=== PATIENT | male | born 1960 | race Caucasian/White ===

== ENCOUNTER 2018-01-03 07:48 | Inpatient (IN) ==
[~2018-01-03 07:48] MED LIST: *HR* EPINEPHrine 1 MG/ML AMPUL ONE; *HR* FentaNYL (PF) 100 MCG/2 ML VIAL ONE; *HR* Midazolam HCl 2 MG/2 ML VIAL ONE; *HR* Propofol 200 MG/20 ML VIAL IVP ONE; *HR* Rocuronium Bromide 50 MG/5 ML VIAL ONE; Dexamethasone 4 MG/ML VIAL ONE; Lidocaine -MPF 2% 2 ML VIAL ONE; NiCARdipine 2.5 MG/10 ML Syringe IVPB ONE; Nitroglycerin 25 MG/250 ML INFUS..BTL IVC ONE; Ondansetron 4 MG/2 ML VIAL ONE
[2018-01-03] MEDS ORDERED: Albuterol 2.5 MG/3 ML NEBULIZER IH ONE (08:05)
[2018-01-03] MEDS ORDERED: CeFAZolin Syr 2,000MG/20 ML 2,000 MG/20 ML SYRINGE IVPB ONE (08:06)
[2018-01-03] MEDS ORDERED: Heparin 1,000 UNITS/500 mL 500 ML ONE (08:08)
[2018-01-03] MEDS ORDERED: Famotidine 20 MG/2 ML VIAL IVP ONE (08:08)
[2018-01-03] MEDS ORDERED: Levalbuterol Neb 1.25 MG/3 ML IH ONE (08:08)
[2018-01-03] MEDS ORDERED: Heparin 1,000 UNITS/500 mL 1,500 ML ONE (08:09)
[2018-01-03] MEDS ORDERED: Acetaminophen IV 1,000 MG/100 ML INFUS..BTL IVPB ONE (08:09)
[2018-01-03] MEDS ORDERED: Lidocaine -MPF 2% 2 ML VIAL ONE (08:10)
--- NOTE | 2018-01-03 08:12 | Anesthesia Evaluation PreOp ---
Date of Encounter: 01/03/18 Time of Encounter: 08:10 - Past History Planned Operation: Left Fem-Pop Bypass Cardiac History: HTN, Hyperlipidemia, Other (PVD) Pulmonary History: Smoker, COPD SLACKMAN History: Denies Any Significant HX Other Medical History: Other (Anxiety) Anesthesia History: No Prior Anesthetic Complications Alcohol Use: occasionally Drug use: none Medications and Allergies Acetaminophen [Tylenol] 500 mg PO Q6HR PRN 12/12/17 [History] Albuterol Sulfate [Ventolin Hfa] 2 puff IH Q6H PRN 12/12/17 [History] Aspirin [Lo-Dose Aspirin EC] 81 mg PO DAILY 12/12/17 [History] Sertraline [Zoloft] 50 mg PO DAILY 12/12/17 [History] Umeclidinium [place] [Incruse Ellipta] 62.5 mcg IH DAILY 12/12/17 [History] diphenhydrAMINE HCl [Sleep Aid] 25 mg PO HS 12/12/17 [History] 3 Allergy/AdvReac Type Severity Reaction Status Date / Time No Known Allergies Allergy Verified 12/08/17 11:54 - Meds/Allergy Pre-op Review Medications Reviewed: Yes Allergies Reviewed: Yes Beta Blockers on Current Med List: No Anesthesia Results - Labs Laboratory Tests 01/01/18 01/01/18 01/01/18 13:28 13:28 13:28 Hgb 15.7 Hct 44.9 Plt Count 327 PT 11.1 INR 1.0 APTT 28.5 Sodium 137 Potassium 3.7 BUN 13 Creatinine 0.63 L - Imaging EKG: report reviewed (SR short [place]) Additional studies: Stress Test Negative for Ischemia, EF 44% Anesthesia Exam O2 Sat Height 1.7 m Height 1.7 m Weight 58.06 kg Weight 58.06 kg O2 Sat by Pulse Oximetry 96 Vital Signs Temp Pulse Resp BP Pulse Ox 98.3 F 125 18 141/82 96 01/03/18 08:05 01/03/18 08:05 01/03/18 08:05 01/03/18 08:05 01/03/18 08:05 Height: 5'7 Weight: 128 lbs NPO (# of Hours): MN Pain Scale: 0 - HEENT Pupil (Motor): Pupils equal, EOMI Mallampati: II Teeth: Missing, Poor dentition Oral Opening: Greater than 3 - SLACKMAN LOC: Oriented SLACKMAN Motor: Normal RUE, Normal LUE, Normal RLE, Normal LLE, Normal Face SLACKMAN Sensory: Normal: RUE, LUE, RLE, Face, Deficit: LLE (paresthesia, ulceration ) - Cardiac Rhythm: Regular Murmur: None JVD: No Carotid Bruit: No - Pulmonary Breath Sounds: bilateral Clear Respiratory Effort: Symmetrical Anesthesia Assess/Plan ASA Score: 3 (HTN PVD) Modified [place] Scale for Level of Consciousness: Cooperative, oriented, and tranquil Anesthetic Plan: General Monitoring Plan: Standard Monitors, A-Line Recovery Plan: PACU (Discussed GA, agrees to proceed)
[2018-01-03] MEDS ORDERED: Ringers Solution, Lactated 1,000 ML IVC SCH (08:15)
[2018-01-03] MEDS ORDERED: Vancomycin 1,000 MG, Sodium Chloride IRRigation 1,000 ML IR ONE (08:15)
--- NOTE | 2018-01-03 08:29 | History & Physical Report ---
Date of Encounter: 01/03/18 Time of Encounter: 08:00 24 Hour HP Update - Instructions Instructions: If the History and Physical is less than 30 days old and was completed prior to A.M. admission and or procedure and has NOT been updated on calendar day of procedure please complete this update prior to performing procedure. - Update Patient reports changes in Medical Condition: No Changes in examination, assessment, or condition: No Changes in Medication: No Preop tests/diagnostics Reviewed: Yes Surgery Remains Indicated: Yes Consent for Planned Operative Procedure(s) Verified: Yes - Pre-Operative Checklist Preoperative Checklist Indicated: Yes Prophylactic Antibiotic Ordered: Yes (vancomycin due to MRSA risk) Home Medications Include Beta Ann: No Beta Ann Taken Today (Day of Surgery): No Beta Ann Taken Yesterday (Day Prior to Surgery): No Is VTE Prophylaxis Indicated?: Yes
[2018-01-03] MEDS ORDERED: Esmolol 100 MG/10 ML VIAL IVP ONE (09:07)
--- NOTE | 2018-01-03 09:21 | Anesthesia Procedures ---
Date of Encounter: 01/03/18 Time of Encounter: 08:10 Procedures: Anesthesia - Arterial Line Consent obtained: written consent Time out performed: Yes Sedation: Versed (mg): 2 Sedation: Fentanyl (mcg): 100 Supplemental Oxygen via Nasal Cannula (L/min): 2 Size (Gauge): 20 Length (inches): 1 3/4 Technique Used: sterile prep, guide wire technique, direct puncture technique Post-Procedure: line taped into place Patient tolerated procedure: no complications Complications: none Site: Radial L Vitals: Vital Signs/O2 Sat/Glucose, Most Current Temp Pulse Resp BP Pulse Ox 01/03/18 08:15 18 141/82 96 01/03/18 08:05 98.3 F 125 18 141/82 96
[2018-01-03] MEDS ORDERED: *HR* Metoprolol 5 MG/5 ML VIAL IVP ONE (09:23)
[2018-01-03] MEDS ORDERED: *HR* HYDROcodone/Acet 10/325 mg TABLET PO PRN (09:25)
[2018-01-03] MEDS ORDERED: *HR* Labetalol 20 MG/4 ML SYRINGE IVP PRN ×2 (09:25→13:09)
[2018-01-03] MEDS ORDERED: *HR* Promethazine 25 MG/ML VIAL IVP PRN ×2 (09:25→13:09)
[2018-01-03] MEDS ORDERED: *HR* Labetalol 100 MG/20 ML MDV IVP PRN (09:45)
[2018-01-03] MEDS ORDERED: *HR* FentaNYL (PF) 100 MCG/2 ML VIAL ONE (09:55)
[2018-01-03] MEDS ORDERED: *HR* PHENYLEPHRINE 1,000 MCG/10 ML SYRINGE IVP ONE ×2 (10:12→11:34)
[2018-01-03] MEDS ORDERED: Neostigmine Methylsulfate 3 MG/3 ML SYRINGE ONE (10:27)
[2018-01-03] MEDS ORDERED: *HR* Labetalol 100 MG/20 ML MDV ONE (11:04)
[2018-01-03] MEDS ORDERED: *HR* Morphine 2 MG/ML SYRINGE IVP PRN (11:56)
--- NOTE | 2018-01-03 12:26 | Operative Note ---
Date of procedure: 01/03/18 Pre-op diagnosis: Peripheral vascular disease with ulceration/gangrene Post-op diagnosis: same Procedure: 1. Left common and deep femoral endarterectomy. 2. Left popliteal endarterectomy. 3. Left femoral to popliteal artery bypass with 6mm PTFE Disatflo minicuff graft. Complications: None Anesthesia: ANNI Surgeon: Danny Lombardi Was there an advertising sales assistant present: No Estimated blood loss (cc): 50 Specimen: Left lower extremity plaque Condition: stable Disposition: same day Procedure in Detail: Indications: The patient is a 57 year old male with a history of chronic obstructive pulmonary disease, hyperlipidemia, tobacco abuse and peripheral vascular disease with disabling claudication, left toe ulcers and left toe gangrene. He was found to have severe left lower extremity peripheral vascular disease. Surgery was recommended to reduce his symptoms. Procedure: The patient was identified in the preoperative area. The risks, benefits, and alternatives of the procedure were discussed. All questions were answered. The patient was taken to the operating room and placed in supine position on the operating room table. After the induction of general endotracheal anesthesia, he was cleaned and draped in normal sterile fashion. An oblique incision was made over the left groin sharply. Hemostasis was obtained with electrocautery. Through a process of blunt, sharp, and electrocautery dissection, the left femoral vessels were dissected circumferentially and surrounded with vessel loops. An incision was made on the left medial distal thigh sharply. Hemostasis was obtained with electrocautery. Through a process of blunt, sharp, and electrocautery dissection, the left above-knee popliteal artery was dissected proximally and distally and surrounded with vessel loops. A graft was tunneled between the popliteal and femoral incisions. The patient received 5000 units of heparin intravenously. Additional heparin was given throughout the case to maintain adequate anticoagulation. The popliteal vessels were occluded and a longitudinal arteriotomy was made in the popliteal artery. A stenotic, flow-limiting plaque was identified in the above knee popliteal artery. Using a dental freer, a left popliteal artery endarterectomy was performed. Upon removal of the plaque, no elevated flaps were noted. Release of the vessel loops revealed retrograde flow through the popliteal artery. The loops were then applied to tension. The distal end of the graft was sutured in place with a running 6-0 Prolene, but not tied. Heparinized saline was infused into the lumen. Tension was applied to the femoral vessel loops. An arteriotomy was made in the common femoral artery and the graft was cut to fit the defect. It was noted that nearly occlusive plaque extended from the common femoral artery through the deep femoral artery. The superficial femoral artery was chronically occluded. Using a dental freer, a left common and deep femoral artery endarterectomy was performed. Upon removal of the plaque, no elevated flaps were noted. Release of the vessel loops revealed pulsatile antegrade flow and significant retrograde flow through the deep femoral artery. The loops were then applied to tension. The graft was then anastamosed to the arteriotomy with a running 6-0 Prolene. The vessels were flushed through the graft and heparin was infused into the lumen. The graft was clamped with an atraumatic clamp. Thrombin and gelfoam were used at the proximal anastamosis. The distal arterial anastomosis was completed and prior to completing the closure, the popliteal vessels were flushed and reoccluded. Heparinized saline was infused into the lumen. The anastamosis was tied and then flow was restored. Polyphasic signals were noted distal to the distal anastomosis as well as at the posterior tibial artery. Wounds were irrigated with antibiotic-containing saline. Thrombin and gelfoam were used to aid in hemostasis. Platelet rich and platelet poor plasma were infused into the wounds. Meticulous hemostasis was obtained throughout the wound with electrocautery. Wounds were reapproximated with layers of 2-0 and 3-0 Vicryl. Skin was reapproximated with 3-0 Monocryl. Sterile dressing was applied. The patient was extubated and taken to recovery room in stable condition.
--- NOTE | 2018-01-03 12:57 | Anesthesia Evaluation Post Op ---
Date of Encounter: 01/03/18 Time of Encounter: 12:50 - Vital Signs Vital Signs: Vital Signs/O2 Sat/Glucose, Most Current Temp Pulse Resp BP Pulse Ox 01/03/18 12:45 98.8 F 85 16 146/86 95 01/03/18 12:35 80 14 154/89 94 01/03/18 12:25 80 16 153/89 97 01/03/18 12:15 97.5 F L 89 18 157/90 100 - Lungs Lungs: Clear Ascult./Percussion - Airway Airway: Non-obstructed - Cardiovascular Regular Rate - Mental Status Mental Status: Alert & Oriented, Answers Appropriately - Pain Pain Scale: 0 - Nausea Vomiting Nausea Vomiting: Not Present - Hydration Hydration: Ice chips - Discharge PostOp Status: Transfer Patient to floor
[2018-01-03] MEDS ORDERED: Naloxone 0.4 MG/ML INJ IVP PRN (13:09)
[2018-01-03] MEDS ORDERED: Acetaminophen 325 MG TABLET PO PRN (13:09)
[2018-01-03] MEDS ORDERED: *HR* OxyCODONE Immed Rel 5 MG TABLET PO PRN (13:09)
[2018-01-03] MEDS ORDERED: Ondansetron 4 MG/2 ML VIAL IVP PRN (13:09)
[2018-01-03] MEDS ORDERED: OXYCODONE Oral CONC 10 MG/0.5 ML ORAL.SYG SL PRN (13:09)
[2018-01-03] MEDS: *HR* Metoprolol 5 MG/5 ML VIAL IVP SCH ×3 (13:46→23:51)
[2018-01-03] MEDS: Aspirin Enteric Coated 81 MG Tablet PO SCH (13:47)
[2018-01-03] MEDS: *HR* HYDROcodone/Acet 5/325 mg TABLET PO PRN (15:01)
[2018-01-03] MEDS: ceFAZolin 2,000 MG in 0.9 % Sodium Chloride 100 ML IVPB SCH ×2 (16:16→23:47)
[2018-01-03] MEDS: OXYCODONE Oral CONC 10 MG/0.5 ML ORAL.SYG SL PRN (17:51)
[2018-01-03] MEDS ORDERED: Vancomycin 0 MG in D5% in Water 250 ML IVPB ONE (19:30)
[2018-01-04] MEDS: OXYCODONE Oral CONC 10 MG/0.5 ML ORAL.SYG SL PRN ×3 (00:18→10:04)
[2018-01-04 03:55] LABS: Basophils # 0.1 K/mcL (0.0-0.2); Basophils % 0.4 %; Eosinophils # 0.1 K/mcL (0.0-0.6); Eosinophils % 0.4 %; Hematocrit 38.1 % (37.5-50.1); Immature Granulocytes % 0.4 % (0-4); Lymphocytes # 3.5 K/mcL (0.6-4.6); Lymphocytes % 18.4 %; Mean Corpuscular HGB Conc 34.6 g/dL (31.6-35.5); Mean Corpuscular Hemoglobin 31.8 pg (28.0-33.3); Mean Corpuscular Volume 91.8 fL (83.0-100.0); Mean Platelet Volume 10.3 fL (9.4-12.4); Monocytes # 1.7 K/mcL (0.0-1.3); Neutrophils # 13.7 K/mcL (1.6-8.9); Platelet Count 237 K/mcL (140-400); Red Blood Count 4.15 M/mcL (4.19-5.50); Red Cell Distribution Width 13.5 % (11.5-14.5); Segmented Neutrophils % 71.4 %
[2018-01-04 03:58] LABS: Hemoglobin 13.2 g/dL (12.9-16.9)
[2018-01-04 04:14] LABS: BUN/Creatinine Ratio 13 (6-26); Blood Urea Nitrogen 7 mg/dL (6-20); Carbon Dioxide 25 mEq/L (23-29); Chloride 105 mEq/L (98-107); Glucose 101 mg/dL (70-105); Osmolality,Calculated 280 (280-300); Potassium 3.8 mEq/L (3.5-5.1); Sodium 136 mEq/L (136-145); eGFR For African Americans > 60 (> 60); eGFR For Non-African Americans > 60 (> 60)
[2018-01-04] MEDS ORDERED: *HR* Heparin 5,000 UNIT/ML VIAL SQ SCH ×2 (06:00)
[2018-01-04] MEDS: *HR* Metoprolol 5 MG/5 ML VIAL IVP SCH (06:19)
--- NOTE | 2018-01-04 07:06 | Discharge Summary ---
Orders not resulted at time of discharge: Pending orders 01/02/18 09:28 Red Blood Cells [BBK] Routine 01/03/18 12:04 Surgical Pathology [PTH] Routine Date of Encounter: 01/04/18 Time of Encounter: 07:50 - Discharge Diagnosis (1) Atherosclerosis of left lower extremity with gangrene Priority: Primary Status: Acute Comments: The patient is postoperative day #1 after a left femoral to popliteal bypass and left femoral endarterectomy. He tolerated the procedure well. His foot is warm. He will be discharged today. Qualifiers: Peripheral atherosclerosis artery type: bypass graft, nonbiological Qualified Code(s): I70.662 - Atherosclerosis of nonbiological bypass graft(s) of the extremities with gangrene, left leg (2) COPD (chronic obstructive pulmonary disease) Priority: Secondary Status: Chronic Qualifiers: COPD type: emphysema Emphysema type: panlobular Qualified Code(s): J43.1 - Panlobular emphysema (3) Essential hypertension Priority: Secondary Status: Chronic (4) Tobacco abuse Priority: Secondary Status: Chronic - Hospital Course Hospital course: Mr. Correa is a 57 year old male with a history of hypertension, COPD, tobacco abuse and peripheral vascular disease with gangrene. He was admitted on and underwent a left femoral endarterectomy and left femoral to popliteal artery bypass. He tolerated the procedure well and was discharged in stable condition on postoperative day #1. Time spent discussing smoking cessation with patient: 3 to 10 minutes - Time Spent with Patient Total time spent providing and/or coordinating discharge services: - Discharge Medications Home Medications: Albuterol Sulfate [Ventolin Hfa] 2 puff IH Q6H PRN 12/12/17 [History] Aspirin [Lo-Dose Aspirin EC] 81 mg PO DAILY 12/12/17 [History] Sertraline [Zoloft] 50 mg PO DAILY 12/12/17 [History] Umeclidinium [place] [Incruse Ellipta] 62.5 mcg IH DAILY 12/12/17 [History] diphenhydrAMINE HCl [Sleep Aid] 25 mg PO HS 12/12/17 [History] Ibuprofen [Motrin] 400 mg PO Q6HR PRN 01/10/18 [History] OxyCODONE/APAP 5/325 [Percocet 5/325 MG] 1 each PO Q6HR PRN 5 Days #20 tablet [Rx] Rivaroxaban [Xarelto] 20 mg PO DAILY #30 tablet 01/10/18 [Rx] Allergies/Adverse Reactions: 3 Allergy/AdvReac Type Severity Reaction Status Date / Time No Known Allergies Allergy Verified 12/08/17 11:54 Date of admission: 01/03/18 13:02 Primary care physician: Elvis Arreaga MD Procedure(s) Performed: Let femoral endarterectomy, left femoral to popliteal bypass. Discharging clinician: Danny Lombardi Anticipated date of discharge: 01/04/18 Exam Vital Signs, Last 4 Hours Temp Pulse Resp BP Pulse Ox 01/04/18 06:40 97.9 F 64 16 113/70 96 01/04/18 04:08 98.1 F 71 16 123/75 96 General: Present: Conversant, No Apparent Distress Cardiac: Present: Reg Rate and Rhythm Lungs: Present: Normal Breath Sounds Neuro: Present: Alert and responsive, No focal deficits noted Abdomen: Present: Soft, Non-tender Vascular: Present: Normal capillary refill, Surgical incisions (incisions clean and dry without erythema or drainage), Other (pedal signals present bilaterally) . Absent: Cyanosis, Edema Skin: Present: No rashes noted on visualized skin - Patient Status Disposition: Home, Self-Care Condition: Good Functional capacity at discharge: independent ambulation Overall status at discharge: patient is back to baseline - Discharge Instructions Instructions: Femoropopliteal Bypass (DC) Follow Up With: Danny Lombardi MD [Partnered Physician] - 02/13/18 1:00 pm Elvis Arreaga MD [Primary Care Provider] - 01/10/18 8:30 am Additional Instructions: May remove bandage and shower on 01/05/18. Wash wound gently and pat to dry. Apply dry bandage to wound daily for 7 days. No tub baths or swimming until 01/26/18. Call Dr. Lombardi at [phone] with questions or concerns. - Diet and Activity Activity: increase activity as tolerated Diet: advance to your usual diet - VTE Documentation of Mechanical Device: Intermittent pneumatic compression device
[2018-01-04] MEDS: Aspirin Enteric Coated 81 MG Tablet PO SCH (08:02)
[2018-01-04] MEDS: *HR* HYDROcodone/Acet 5/325 mg TABLET PO PRN (08:02)
[2018-01-04 10:39] VITALS: BP 126/69
== END 2018-01-04 12:15 | disposition home or self-care (01) | DRG 181 ==
LOC: SAMDAY 07:48 → 2NNU 13:02
PROVIDERS: ADMIT Surgery; ATTEND Surgery

== ENCOUNTER 2018-01-10 10:12 | Inpatient (IN) ==
[2018-01-10] MEDS ORDERED: *HR* HYDROcodone/Acet 5/325 mg TABLET PO ONE (10:42)
--- NOTE | 2018-01-10 11:27 | Emergency Department Note ---
Disposition Clinical Impression: S/P femoral-popliteal bypass surgery, Diminished pulses in lower extremity Disposition: Admitted As Inpatient Condition: Good Time of Disposition: 12:59 General Adult HPI - General Chief complaint: ED Extremity Problem,Nontraumatic Stated complaint: Left toe gangrene Time Seen by Provider: 01/10/18 10:28 Source: patient Limitations: no limitations Nursing Notes Reviewed: Yes Vital Signs Reviewed: Yes - History of Present Illness HPI Narrative: Mr. Correa is a very pleasant 57-year-old gentleman with a past history of PAD, hypertension, depression and tobacco abuse who presents to the [facility] emergency department with a chief complaint of left lower extremity shooting pain in his toes. He reports that this complaint and present for several months but has really intensified over the last several days. He is a current everyday smoker of 1-1.5 packs per day. He reports that he underwent a left femoropopliteal bypass with left popliteal and left deep femoral and endarectomy by Dr. Lombardi on 01/03/18. He reports that he is taking ASA only for his coagulation. Patient has a history of necrotic toes prior to this procedure that he states is unchanged. He goes on to state that he is experiencing changes in tempurature from hot to cold in his left lower extremity. He denies any pain about his left calf or thigh. He denies any drainage or erythema about his surgical incisions. He denies any chest pain, shortness of breath, palpitations, nausea, vomiting, diaphoresis. No other complaints at this time. Pain Scale: 10 - Related Data Home Medications Medication Instructions Recorded Confirmed Albuterol Sulfate [Ventolin Hfa] 2 puff IH Q6H PRN 12/12/17 01/10/18 Aspirin [Lo-Dose Aspirin EC] 81 mg PO DAILY 12/12/17 01/10/18 Sertraline [Zoloft] 50 mg PO DAILY 12/12/17 01/10/18 Umeclidinium [place] [Incruse 62.5 mcg IH DAILY 12/12/17 01/10/18 Ellipta] diphenhydrAMINE HCl [Sleep Aid] 25 mg PO HS 12/12/17 01/10/18 Ibuprofen [Motrin] 400 mg PO Q6HR PRN 01/10/18 01/10/18 Allergies Allergy/AdvReac Type Severity Reaction Status Date / Time No Known Allergies Allergy Verified 12/08/17 11:54 Review of Systems: As Per HPI Past Medical History - Past Medical History Medical history: Reports: asthma, COPD, hyperlipidemia, hypertension, TIA Psychiatric history: Reports: anxiety, depression - Social History Smoking Status: Current every day smoker Smokeless Tobacco Status: No Alcohol use: Reports: occasionally Drug use: Reports: none Physical Exam CONSTITUTIONAL: Alert and oriented X3 in no apparent distress HEAD: Normocephalic; atraumatic. RESP: NRD without use of accessory musculature, CTA b/l with no wheezes/rales/ rhonchi CARD: Regular rhythm, without murmurs, rubs, or gallop ABD: grossly normal, soft, non-tender, no guarding/distention/rigidity SKIN: Black eschar about second, third, fourth toes on the left foot. Left inguinal and left medial thigh incision are clean dry intact. This appears to be well-healed at this time. There is no drainage, erythema or signs of dehiscence. EXT: PT pulses 1+ and symmetrical; no lateralizing edema PSYCH: appropriate mood/affect - General Limitations: no limitations General appearance: alert Course Course Narrative: Patient was seen and examined at bedside. Vital signs were reviewed and showed tachycardia 120s. Patient is afebrile. Physical examination demonstrates chronic black eschar about the left second, third, fourth toes. The left lower extremities feels warm to touch with faint posterior tibial pulses. Muscle strength in upper extremities 5 out of 5. The DPN, SPN, PT, sural, saphenous are intact. Recent surgical incisions above the left medial thigh and left inguinal area appear to be well-healed at this time. There is no evidence of dehiscence, erythema, drainage. She denies any pain about his left calf or thigh. In the setting of tobacco abuse, PAD and recent vascular surgery along with worsening peripheral neuropathy symptoms, will begin workup with ABIs to further evaluate the patency of this graft with basic labwork and coags. This disposition and plan was discussed with patient and family who understand and agree to this plan. 1215: SUNDEEP rt 0.56 and lt 0.00. Doppler ultrasound demonstrated monophasic waveform on PT and DP on the left foot. Dr. Lombardi was paged and called back at 1220 and will see this patient in the emergency department prior to disposition. No further recommendations at this time. 1256: Dr. Lombardi called back and recommended 5,000 unit heparin bolus and type and cross. Patient will be taken directly to the OR for intervention and admitted via vascular surgery team. Patient understands this plan. Vital Signs Temperature 97.9 F 01/10/18 10:15 Pulse Rate 124 01/10/18 10:15 Respiratory Rate 14 01/10/18 10:15 Blood Pressure 154/95 01/10/18 10:15 O2 Sat by Pulse Oximetry 94 01/10/18 10:15 Temperature 97.9 F 01/10/18 10:15 Pulse Rate 113 01/10/18 13:08 Respiratory Rate 16 01/10/18 13:08 Blood Pressure 153/93 01/10/18 13:08 O2 Sat by Pulse Oximetry 94 01/10/18 13:08 Oxygen Delivery Oxygen Delivery Room Air Medical Decision Making - Medical Records Medical records reviewed: Yes I reviewed the patient's medical records. - Lab Data Lab results reviewed: Yes I reviewed the patient's lab results. Result diagrams: 01/10/18 11:32 01/10/18 11:11 Lab Results 01/10/18 01/10/18 01/10/18 Range/Units 11:11 11:11 11:32 WBC 15.9 H (4.3-11.1) K/mcL RBC 4.61 (4.19-5.50) M/mcL Hgb 15.1 D (12.9-16.9) g/dL Hct 42.6 (37.5-50.1) % MCV 92.4 (83.0-100.0) fL MCH 32.8 (28.0-33.3) pg MCHC 35.4 (31.6-35.5) g/dL RDW 13.1 (11.5-14.5) % Plt Count 397 D (140-400) K/mcL MPV 10.0 (9.4-12.4) fL Immature Gran % 0.4 (0-4) % Seg Neutrophils % 75.2 % Lymphocytes % 14.9 % Monocytes % 8.6 % Eosinophils % 0.6 % Basophils % 0.3 % Neutrophils # 11.9 H (1.6-8.9) K/mcL Lymphocytes # 2.4 (0.6-4.6) K/mcL Monocytes # 1.4 H (0.0-1.3) K/mcL Eosinophils # 0.1 (0.0-0.6) K/mcL Basophils # 0.0 (0.0-0.2) K/mcL PT (9.4-12.1) Seconds INR Sodium 134 L (136-145) mEq/L Potassium 3.7 (3.5-5.1) mEq/L Chloride 99 (98-107) mEq/L Carbon Dioxide 24 (23-29) mEq/L BUN 6 (6-20) mg/dL Creatinine 0.55 L (0.70-1.30) mg/dL Est GFR ( Amer) > 60 (> 60) Est GFR (Non-Af Amer) > 60 (> 60) BUN/Creatinine Ratio 11 (6-26) Glucose 114 H (70-105) mg/dL Calculated Osmolality 276 L (280-300) Calcium 9.8 (8.6-10.3) mg/dL Specimen Rejected Volume Blood Type Antibody Screen 01/10/18 01/10/18 01/10/18 Range/Units 11:56 12:50 13:05 WBC (4.3-11.1) K/mcL RBC (4.19-5.50) M/mcL Hgb (12.9-16.9) g/dL Hct (37.5-50.1) % MCV (83.0-100.0) fL MCH (28.0-33.3) pg MCHC (31.6-35.5) g/dL RDW (11.5-14.5) % Plt Count (140-400) K/mcL MPV (9.4-12.4) fL Immature Gran % (0-4) % Seg Neutrophils % % Lymphocytes % % Monocytes % % Eosinophils % % Basophils % % Neutrophils # (1.6-8.9) K/mcL Lymphocytes # (0.6-4.6) K/mcL Monocytes # (0.0-1.3) K/mcL Eosinophils # (0.0-0.6) K/mcL Basophils # (0.0-0.2) K/mcL PT 12.3 H (9.4-12.1) Seconds INR 1.1 Sodium (136-145) mEq/L Potassium (3.5-5.1) mEq/L Chloride (98-107) mEq/L Carbon Dioxide (23-29) mEq/L BUN (6-20) mg/dL Creatinine (0.70-1.30) mg/dL Est GFR ( Amer) (> 60) Est GFR (Non-Af Amer) (> 60) BUN/Creatinine Ratio (6-26) Glucose (70-105) mg/dL Calculated Osmolality (280-300) Calcium (8.6-10.3) mg/dL Specimen Rejected Hemolyzed Blood Type B POSITIVE Antibody Screen NEGATIVE - Radiology Data Radiology results reviewed: Yes I reviewed the patient's radiology results.
[2018-01-10 11:40] LABS: Basophils % 0.3 %; Eosinophils # 0.1 K/mcL (0.0-0.6); Eosinophils % 0.6 %; Hematocrit 42.6 % (37.5-50.1); Immature Granulocytes % 0.4 % (0-4); Lymphocytes # 2.4 K/mcL (0.6-4.6); Lymphocytes % 14.9 %; Mean Corpuscular HGB Conc 35.4 g/dL (31.6-35.5); Mean Corpuscular Hemoglobin 32.8 pg (28.0-33.3); Mean Corpuscular Volume 92.4 fL (83.0-100.0); Monocytes # 1.4 K/mcL (0.0-1.3); Monocytes % 8.6 %; Neutrophils # 11.9 K/mcL (1.6-8.9); Platelet Count 397 K/mcL (140-400); Red Blood Count 4.61 M/mcL (4.19-5.50); Red Cell Distribution Width 13.1 % (11.5-14.5); Segmented Neutrophils % 75.2 %
[2018-01-10 11:44] LABS: Hemoglobin 15.1 g/dL (12.9-16.9)
[2018-01-10 12:11] LABS: BUN/Creatinine Ratio 11 (6-26); Blood Urea Nitrogen 6 mg/dL (6-20); Calcium 9.8 mg/dL (8.6-10.3); Carbon Dioxide 24 mEq/L (23-29); Chloride 99 mEq/L (98-107); Glucose 114 mg/dL (70-105); Osmolality,Calculated 276 (280-300); Potassium 3.7 mEq/L (3.5-5.1); Sodium 134 mEq/L (136-145); eGFR For African Americans > 60 (> 60); eGFR For Non-African Americans > 60 (> 60)
[2018-01-10] MEDS ORDERED: *HR* Heparin 5,000 UNIT/ML VIAL IVP ONE (12:54)
--- NOTE | 2018-01-10 12:59 | Emergency Department Note ---
Disposition Clinical Impression: S/P femoral-popliteal bypass surgery, Diminished pulses in lower extremity Disposition: Admitted As Inpatient Condition: Good Extremity Problem HPI - General Chief complaint: ED Extremity Problem,Nontraumatic Stated complaint: Left toe gangrene Time Seen by Provider: 01/10/18 10:28 Source: patient Limitations: no limitations Nursing Notes Reviewed: Yes Vital Signs Reviewed: Yes - History of Present Illness Pain Scale: 10 - Related Data Home Medications Medication Instructions Recorded Confirmed Albuterol Sulfate [Ventolin Hfa] 2 puff IH Q6H PRN 12/12/17 01/10/18 Aspirin [Lo-Dose Aspirin EC] 81 mg PO DAILY 12/12/17 01/10/18 Sertraline [Zoloft] 50 mg PO DAILY 12/12/17 01/10/18 Umeclidinium [place] [Incruse 62.5 mcg IH DAILY 12/12/17 01/10/18 Ellipta] diphenhydrAMINE HCl [Sleep Aid] 25 mg PO HS 12/12/17 01/10/18 Ibuprofen [Motrin] 400 mg PO Q6HR PRN 01/10/18 01/10/18 Previous Rx's Medication Instructions Recorded OxyCODONE/APAP 5/325 [Percocet 1 each PO Q6HR PRN 5 Days #20 01/10/18 5/325 MG] tablet Rivaroxaban [Xarelto] 20 mg PO DAILY #30 tablet 01/10/18 Allergies Allergy/AdvReac Type Severity Reaction Status Date / Time No Known Allergies Allergy Verified 12/08/17 11:54 Past Medical History - Past Medical History Medical history: Reports: asthma, COPD, hyperlipidemia, hypertension, TIA Psychiatric history: Reports: anxiety, depression - Social History Smoking Status: Current every day smoker Smokeless Tobacco Status: No Alcohol use: Reports: occasionally Drug use: Reports: none Physical Exam - General Limitations: no limitations General appearance: alert Course Vital Signs Temperature 97.9 F 01/10/18 10:15 Pulse Rate 124 01/10/18 10:15 Respiratory Rate 14 01/10/18 10:15 Blood Pressure 154/95 01/10/18 10:15 O2 Sat by Pulse Oximetry 94 01/10/18 10:15 Temperature 98.5 F 01/11/18 11:20 Pulse Rate 89 01/11/18 11:20 Respiratory Rate 16 01/11/18 11:20 Blood Pressure 144/85 01/11/18 11:20 O2 Sat by Pulse Oximetry 98 01/11/18 11:20 Oxygen Delivery Oxygen Delivery Room Air Extremity Problem, Nontraumati - Lab Data Result diagrams: 01/11/18 04:20 01/11/18 04:20 Lab Results 01/10/18 01/10/18 01/10/18 Range/Units 11:11 11:11 11:32 WBC 15.9 H (4.3-11.1) K/mcL RBC 4.61 (4.19-5.50) M/mcL Hgb 15.1 D (12.9-16.9) g/dL Hct 42.6 (37.5-50.1) % MCV 92.4 (83.0-100.0) fL MCH 32.8 (28.0-33.3) pg MCHC 35.4 (31.6-35.5) g/dL RDW 13.1 (11.5-14.5) % Plt Count 397 D (140-400) K/mcL MPV 10.0 (9.4-12.4) fL Immature Gran % 0.4 (0-4) % Seg Neutrophils % 75.2 % Lymphocytes % 14.9 % Monocytes % 8.6 % Eosinophils % 0.6 % Basophils % 0.3 % Neutrophils # 11.9 H (1.6-8.9) K/mcL Lymphocytes # 2.4 (0.6-4.6) K/mcL Monocytes # 1.4 H (0.0-1.3) K/mcL Eosinophils # 0.1 (0.0-0.6) K/mcL Basophils # 0.0 (0.0-0.2) K/mcL PT (9.4-12.1) Seconds INR Sodium 134 L (136-145) mEq/L Potassium 3.7 (3.5-5.1) mEq/L Chloride 99 (98-107) mEq/L Carbon Dioxide 24 (23-29) mEq/L BUN 6 (6-20) mg/dL Creatinine 0.55 L (0.70-1.30) mg/dL Est GFR ( Amer) > 60 (> 60) Est GFR (Non-Af Amer) > 60 (> 60) BUN/Creatinine Ratio 11 (6-26) Glucose 114 H (70-105) mg/dL Calculated Osmolality 276 L (280-300) Calcium 9.8 (8.6-10.3) mg/dL Specimen Rejected Volume Blood Type Antibody Screen 01/10/18 01/10/18 01/10/18 Range/Units 11:56 12:50 13:05 WBC (4.3-11.1) K/mcL RBC (4.19-5.50) M/mcL Hgb (12.9-16.9) g/dL Hct (37.5-50.1) % MCV (83.0-100.0) fL MCH (28.0-33.3) pg MCHC (31.6-35.5) g/dL RDW (11.5-14.5) % Plt Count (140-400) K/mcL MPV (9.4-12.4) fL Immature Gran % (0-4) % Seg Neutrophils % % Lymphocytes % % Monocytes % % Eosinophils % % Basophils % % Neutrophils # (1.6-8.9) K/mcL Lymphocytes # (0.6-4.6) K/mcL Monocytes # (0.0-1.3) K/mcL Eosinophils # (0.0-0.6) K/mcL Basophils # (0.0-0.2) K/mcL PT 12.3 H (9.4-12.1) Seconds INR 1.1 Sodium (136-145) mEq/L Potassium (3.5-5.1) mEq/L Chloride (98-107) mEq/L Carbon Dioxide (23-29) mEq/L BUN (6-20) mg/dL Creatinine (0.70-1.30) mg/dL Est GFR ( Amer) (> 60) Est GFR (Non-Af Amer) (> 60) BUN/Creatinine Ratio (6-26) Glucose (70-105) mg/dL Calculated Osmolality (280-300) Calcium (8.6-10.3) mg/dL Specimen Rejected Hemolyzed Blood Type B POSITIVE Antibody Screen NEGATIVE Attestation Statement - Attestation Attestation: I, Elvis Santos, examined this patient and my medical decision-making was reviewed with the UNIX DEVELOPER/PA/Advanced Practice Nurse/Resident Physician. I agree with the documented findings, disposition and treatment plan as described except to the extent set forth below. 57-year-old male presents emergency department for concerns of left lower extremity pain. Patient is a severe vasculopath and recently had femoropopliteal bypass by Dr. Lombardi within the past few weeks. Patient states there was a pulse to the left lower extremity after surgery. Patient states he has been using aspirin at home but no other blood thinners. Patient states over the past few days his symptoms have significantly worsened. On evaluation emergency Department he has a left leg that is cooler to touch than his right, dusky in appearance. Bedside Doppler shows a weak monophasic pulse to the lower extremity. Cap refill is greater than 5 seconds in the left lower extremity. SUNDEEP is 0.6 on the right and [address] Lombardi was counseled regarding this patient's case and presentation. He agreed with the plan for admission to the operating room for further care and evaluation. Dr. Lombardi is currently in the operating room with another patient, he will evaluate Mr. Correa after the case is finished.
[2018-01-10 13:13] LABS: INR 1.1; Prothrombin Time 12.3 Seconds (9.4-12.1)
[2018-01-10] MEDS ORDERED: Heparin 1,000 UNITS/500 mL 1,000 ML ONE (13:35)
[2018-01-10] MEDS ORDERED: Vancomycin 1,000 MG VIAL ONE ×2 (13:35→14:22)
[2018-01-10] MEDS ORDERED: *HR* FentaNYL (PF) 100 MCG/2 ML VIAL ONE ×3 (13:41→16:15)
[2018-01-10] MEDS ORDERED: Ondansetron 4 MG/2 ML VIAL ONE (13:41)
[2018-01-10] MEDS ORDERED: Lidocaine -MPF 2% 2 ML VIAL ONE (13:41)
[2018-01-10] MEDS ORDERED: *HR* Propofol 200 MG/20 ML VIAL IVP ONE (13:41)
[2018-01-10] MEDS ORDERED: Dexamethasone 4 MG/ML VIAL ONE (13:41)
[2018-01-10] MEDS ORDERED: *HR* Rocuronium Bromide 50 MG/5 ML VIAL ONE (13:41)
[2018-01-10] MEDS ORDERED: *HR* Succinylcholine 200 MG/10 ML VIAL IVP ONE (13:41)
[2018-01-10] MEDS ORDERED: *HR* Midazolam HCl 2 MG/2 ML VIAL ONE (13:41)
[2018-01-10] MEDS ORDERED: Lidocaine -MPF 4% 5 ML AMPUL ONE (13:41)
[2018-01-10] MEDS ORDERED: Albuterol 2.5 MG/3 ML NEBULIZER IH ONE (13:48)
[2018-01-10] MEDS ORDERED: Albuterol 2.5 MG/3 ML NEBULIZER ONE (13:50)
--- NOTE | 2018-01-10 13:52 | Anesthesia Evaluation PreOp ---
Date of Encounter: 01/10/18 Time of Encounter: 13:40 - Past History Planned Operation: Thrombectomy s/p Left Fem-Pop Cardiac History: HTN, Hyperlipidemia, Other (PVD) Pulmonary History: Smoker, COPD FIRE CODE INSPECTOR History: Denies Any Significant HX Other Medical History: Other (PTSD) Anesthesia History: No Prior Anesthetic Complications Alcohol Use: occasionally Drug use: none Medications and Allergies Albuterol Sulfate [Ventolin Hfa] 2 puff IH Q6H PRN 12/12/17 [History] Aspirin [Lo-Dose Aspirin EC] 81 mg PO DAILY 12/12/17 [History] Sertraline [Zoloft] 50 mg PO DAILY 12/12/17 [History] Umeclidinium [place] [Incruse Ellipta] 62.5 mcg IH DAILY 12/12/17 [History] diphenhydrAMINE HCl [Sleep Aid] 25 mg PO HS 12/12/17 [History] Ibuprofen [Motrin] 400 mg PO Q6HR PRN 01/10/18 [History] 3 Allergy/AdvReac Type Severity Reaction Status Date / Time No Known Allergies Allergy Verified 12/08/17 11:54 - Meds/Allergy Pre-op Review Medications Reviewed: Yes Allergies Reviewed: Yes Beta Blockers on Current Med List: Yes Anesthesia Results - Labs 01/10/18 11:32 01/10/18 11:11 - Imaging EKG: report reviewed (SR short NM) Additional studies: Vital Signs/O2 Sat/Glucose, Most Current Temp Pulse Resp BP Pulse Ox 01/10/18 13:08 113 16 153/93 94 01/10/18 12:43 113 15 173/98 93 01/10/18 10:15 97.9 F 124 14 154/95 94 Anesthesia Exam O2 Sat Height 1.7 m Weight 57.606 kg O2 Sat by Pulse Oximetry 94 O2 Sat by Pulse Oximetry 93 O2 Sat by Pulse Oximetry 94 Vital Signs Temp Pulse Resp BP Pulse Ox 97.9 F 124 14 154/95 94 01/10/18 10:15 01/10/18 10:15 01/10/18 10:15 01/10/18 10:15 01/10/18 10:15 Height: 5'7 Weight: 127 lbs NPO (# of Hours): MN Pain Scale: 2 - HEENT Pupil (Motor): Pupils equal, EOMI Mallampati: III Teeth: Edentulous Oral Opening: Less than or equal to 3 - FIRE CODE INSPECTOR LOC: Oriented FIRE CODE INSPECTOR Motor: Normal RUE, Normal LUE, Normal RLE, Normal LLE, Normal Face FIRE CODE INSPECTOR Sensory: Normal: RUE, RLE, LLE, Face, Deficit: LUE (paresthesia) - Cardiac Rhythm: Regular Murmur: None JVD: No Carotid Bruit: No - Pulmonary Breath Sounds: bilateral Clear Respiratory Effort: Symmetrical Anesthesia Assess/Plan ASA Score: 3 (COPD PVD HTN) Modified Nuno Scale for Level of Consciousness: Cooperative, oriented, and tranquil Anesthetic Plan: General Monitoring Plan: Standard Monitors Recovery Plan: PACU (Discussed GA, agrees to proceed)
--- NOTE | 2018-01-10 13:53 | Vascular/Endovascular H&P ---
Date of Encounter: 01/10/18 Time of Encounter: 13:20 Assessment and Plan (1) Atherosclerosis of left lower extremity with gangrene Current Visit: Yes Status: Acute The patient has developed acute right lower extremity ischemia. He has previously undergone a left femoral to popliteal artery bypass. He has a diminished pulse exam and his ABIs are abnormal. He will be taken emertgently to the operating room for a grat thrombectomy with possible revision. The risks , benefits and alternatives were discussed and all questions were answered. He expressed understanding and wishes to proceed. Qualifiers: Peripheral atherosclerosis artery type: bypass graft, nonbiological Qualified Code(s): I70.662 - Atherosclerosis of nonbiological bypass graft(s) of the extremities with gangrene, left leg (2) Tobacco abuse Current Visit: Yes Status: Chronic The patient continues to smoke despite being previously advised to quit. He was informed that continued smoking will likely worsen his atherosclerosis and may lead to heart attack, limb loss, organ failure and/or . (3) COPD (chronic obstructive pulmonary disease) Current Visit: Yes Status: Chronic Qualifiers: COPD type: emphysema Emphysema type: panlobular Qualified Code(s): J43.1 - Panlobular emphysema (4) Essential hypertension Current Visit: Yes Status: Chronic History of Present Illness Chief complaint: Left lower extremity gangrene HPI: Mr. Correa is a 57 year old male with multiple medical comorbidities including hypertension, chronic obstructive pulmonary disease and tobacco abuse. The patinet has prevsiously undergone a left femoral to popliteal artery bypass. He reports that he was doing well, but now has developed acute pain and parasthesias in the left lower extremity. He presented to the ER and was found to have absent pedal pulses. Vascular labs were abnormal and vascular surgery was consulted for further evaluation. He denies chest pain or shortness of breath. Past Med Surg Social Fam HX - Past Medical History Medical history: asthma, COPD, hyperlipidemia, hypertension, TIA Psychiatric history: anxiety, depression - Social History Smoking Status: Current every day smoker Smokeless Tobacco Status: No Alcohol use: occasionally Drug use: none - Family History Father Hx Family Cardiac Disorders: Yes Mother Hx Family Cancer: Yes Medications and Allergies Albuterol Sulfate [Ventolin Hfa] 2 puff IH Q6H PRN 12/12/17 [History] Aspirin [Lo-Dose Aspirin EC] 81 mg PO DAILY 12/12/17 [History] Sertraline [Zoloft] 50 mg PO DAILY 12/12/17 [History] Umeclidinium [place] [Incruse Ellipta] 62.5 mcg IH DAILY 12/12/17 [History] diphenhydrAMINE HCl [Sleep Aid] 25 mg PO HS 12/12/17 [History] Ibuprofen [Motrin] 400 mg PO Q6HR PRN 01/10/18 [History] 3 Allergy/AdvReac Type Severity Reaction Status Date / Time No Known Allergies Allergy Verified 12/08/17 11:54 All Systems Review: The remainder of the systems were reviewed and are negative - Constitutional Constitutional: no chills, no fever(s) - Cardiovascular Cardiovascular: no chest pain at rest, no dyspnea at rest Exam Vital Signs, Last 4 Hours Pulse Resp BP Pulse Ox 01/10/18 13:08 113 16 153/93 94 General: Present: Conversant, No Apparent Distress Neck: Present: Right Carotid bruit. Absent: JVD, Tracheal deviation Cardiac: Present: Reg Rate and Rhythm, Normal S1 and S2 Lungs: Present: Normal Breath Sounds, No Wheeze, Rales, Rhonchi Neuro: Present: Alert and responsive, Motor nerves grossly intact, Sensory nerves grossly intact Abdomen: Present: Soft, Non-tender Vascular: Present: Capillary refill delayed (left forefoot), Cyanosis, Surgical incisions (clean and dry without erythema or drainage). Absent: Edema Skin: Present: Wound/ulcer(s) (left forefoot gangrene) Results 01/10/18 11:32 01/10/18 11:11 - Imaging / Other Tests Non Invasive Vascular Testing: report reviewed, image reviewed
[2018-01-10] MEDS ORDERED: CeFAZolin Syr 2,000MG/20 ML 2,000 MG/20 ML SYRINGE IVPB ONE (14:39)
[2018-01-10] MEDS ORDERED: *HR* Promethazine 25 MG/ML VIAL IVP PRN (14:44)
[2018-01-10] MEDS ORDERED: Ondansetron 4 MG/2 ML VIAL IVP ONE (14:44)
[2018-01-10] MEDS ORDERED: MORPHINE SUL Oral CONC 10 MG/0.5 ML ORAL.SYG SL PRN (14:44)
[2018-01-10] MEDS ORDERED: *HR* OxyCODONE Immed Rel 5 MG TABLET PO PRN (14:44)
[2018-01-10] MEDS ORDERED: Acetaminophen IV 1,000 MG/100 ML INFUS..BTL ONE (15:57)
[2018-01-10] MEDS ORDERED: Esmolol 100 MG/10 ML VIAL IVP ONE (16:20)
[2018-01-10] MEDS ORDERED: *HR* Metoprolol 5 MG/5 ML VIAL IVP ONE (16:35)
[2018-01-10] MEDS: *HR* Labetalol 100 MG/20 ML MDV IVP PRN ×2 (17:04→17:29)
[2018-01-10] MEDS ORDERED: Naloxone 0.4 MG/ML INJ IVP PRN ×3 (17:08→17:51)
[2018-01-10] MEDS ORDERED: *HR* Labetalol 20 MG/4 ML SYRINGE IVP PRN ×2 (17:08→17:51)
--- NOTE | 2018-01-10 17:08 | Operative Note ---
Date of procedure: 01/10/18 Pre-op diagnosis: Acute left lower extremity ischemia, peripheral vascular disease Post-op diagnosis: same Procedure: Left femoral to popliteal artery bypass graft thrombectomy with revision of the proximal anastamosis. Complications: None Anesthesia: GETA Surgeon: Danny Lombardi Was there an physiotherapy assistant present: No Estimated blood loss (cc): 50 Specimen: Left lower extremity thrombus and plaque Condition: stable Disposition: PACU Procedure in Detail: Indications: The patient is a 57 year old female with a history of hypertension , COPD, tobacco abuse and peripheral vascular disease with gangrene. He previously underwent a left femoral to above knee popliteal artery bypass for a left superficial femoral artery occlusion. His symptoms improved and he was healing. He presented to the ER today with acute limb threatning ischemia. Vascular labs revealed an ankle brachial index of 0.0 on the left. Emergent revascularization was recommended to reduce his risk of limb loss. Procedure: The patient was identified in the preoperative area. The risks, benefits and alternatives were discussed and all questions were answered. The patient was taken to the operating room and placed in the supine position on the operating room table. After the induction of general endotracheal anesthesia, the patient was cleaned and draped in the normal sterile fashion. An oblique incision was made sharply through his previous left medial thigh scar. Hemostasis was obtained with electrocautery. Through a process of blunt , sharp and electrocautery dissection, the proximal and distal above knee popliteal arteries were dissected and surrounded with vessel loops. The graft was also dissected and surrounded with vessel loops. The patient received a bolus of heparin and additional heparin throughout the procedure to maintain adequate hemostasis. After waiting adequate time or the heparin to circulate, the vessels were occluded with the vessel loops. A longitudinal arteriotomy was made into the distal end of the grarft overlying the anastamosis. No flow was noted on release of the loops. A 4 [place]et[place] reva catheter was passed into the below knee popliteal artery and inflated. It was withdrawn and some acute thrombus and chronic embolic material was retrieved. Additional passes were extended to the ankle and additional thrombus was retrieved. After two negative passes the vessels were flushed with heparinized saline and occluded. A 4 viet[place] reva was passed proximally, but met resistance at the level of the left groin. A 5 [place]et[place] fgarty was able to pass into the aorta and was withdrawn. However, after multiple passes, minimal thrombus was retrieved and sluggish flow was noted.Proximal obstruction was suspected. An oblique incision was made sharply through his previous left groin scar overlying the femoral vessels. Hemostasis was obtained with electrocautery. Through a process of blunt, sharp and electrocautery dissection, the distal external iliac, deep and superficial femoral arteries were dissected and surrounded with vessel loops. The graft was also dissected and surrounded with vessel loops. A longitudinal arteriotomy was made through the graft anastamosis and extended proximally into the common femoral artery. No flow was noted on release of the loops. A large, firm thrombus was present in the common femoral artery lumen. Some initimal hyperplasia was also noted. The thrombus was retrieve and a dental freer was used to remove plaque and intimal hyperplasia. A 5 [place]et[place] reva catheter was passed into the aorta and inflated. It was withdrawn and minimal thrombus was retrieved. Specimens were sent to pathology. Brisk pulsatile flow was noted at this time. Additional passes of the catheter resulted in no additional thrombus proximally. A 4 [place]et[place] reva catheter was passed distally and thrombus was retrieved from the deep femoral artery. Significant retrograde flow was noted from the deep femoral artery. A 4 [place]et[place] reva catheter was passed distally through the graft and into the distal popliteal artery. Thrombus was retrieved on the first pass. Additional passes resulted in no additional thrombus. Retrograde flow as noted through the graft. The vessels and graft were flushed with heparin. A hemashield patch was cut to fit the arterial defect. 6-0 Prolene was used to oversew and secure the cut ends of the bypass graft anastamosis. The patch was then sutured in place with a running 6-0 prolene. Prior to completing the closure, the vessels were flushed, the graft was flushed and heparin was infused into the lumen. Flow was restored in the [place] vessels and graft. Polyphasic signals were identified in the posterior tibial and dorsalis pedis arteries below the ankle. The wound was irrigated with antibiotic containing saline. Hemostasis was obtained with electrocautery. The wound was reapproximated with 2-0 and 3-0 vicryl. Skin was reapproximated with 3-0 Monocryl. Sterile dressings were applied. The patient was extubated and taken to the recover room in stable condition.
[2018-01-10] MEDS ORDERED: 0.9 % Sodium Chloride 1,000 ML IVC SCH ×2 (17:15→17:51)
[2018-01-10] MEDS: *HR* FentaNYL (PF) 100 MCG/2 ML VIAL IVP PRN ×2 (17:18→17:23)
[2018-01-10] MEDS ORDERED: Nicotine 21 MG PATCH.TD24 TD SCH (17:30)
--- NOTE | 2018-01-10 17:31 | Discharge Summary ---
Orders not resulted at time of discharge: Pending orders 01/10/18 16:20 Surgical Pathology [PTH] Routine Date of Encounter: 01/11/18 Time of Encounter: 15:07 (SEEN BY DR. ROCK) - Discharge Diagnosis (1) Atherosclerosis of left lower extremity with gangrene Priority: Primary Status: Acute Comments: The patient was admitted on 01/10/18 and underwent a graft thrombecotmy with revision. He tolerated the procedure well and was discharged on postoperative day #1 without complications. Qualifiers: Peripheral atherosclerosis artery type: bypass graft, nonbiological Qualified Code(s): I70.662 - Atherosclerosis of nonbiological bypass graft(s) of the extremities with gangrene, left leg (2) Tobacco abuse Priority: Secondary Status: Chronic (3) COPD (chronic obstructive pulmonary disease) Priority: Secondary Status: Chronic Qualifiers: COPD type: emphysema Emphysema type: panlobular Qualified Code(s): J43.1 - Panlobular emphysema (4) Essential hypertension Priority: Secondary Status: Chronic (5) Acute blood loss as cause of postoperative anemia Priority: Secondary Status: Acute Comments: The patient had acute expected postoperative blood loss anemia. He was hemodynamically stable witout evidence of ongoing blood loss. - Hospital Course Hospital course: Mr. Correa is a 57 year old male admitted on 01/10/18 with acute on chronic limb ischemia with dry gangrene. He underwent a graft thrombectomy with revision on and was discharged on 01/11/18 in stable condition. He was started on Xarelto and advised to discontinue smoking. - Time Spent with Patient Total time spent providing and/or coordinating discharge services: - Discharge Medications Prescriptions: OxyCODONE/APAP 5/325 [Percocet 5/325 MG] 1 each PO Q6HR PRN 5 Days #20 tablet PRN Reason: postoperative pain Rivaroxaban [Xarelto] 20 mg PO DAILY #30 tablet Home Medications: Albuterol Sulfate [Ventolin Hfa] 2 puff IH Q6H PRN 12/12/17 [History] Aspirin [Lo-Dose Aspirin EC] 81 mg PO DAILY 12/12/17 [History] Sertraline [Zoloft] 50 mg PO DAILY 12/12/17 [History] Umeclidinium [place] [Incruse Ellipta] 62.5 mcg IH DAILY 12/12/17 [History] diphenhydrAMINE HCl [Sleep Aid] 25 mg PO HS 12/12/17 [History] Ibuprofen [Motrin] 400 mg PO Q6HR PRN 01/10/18 [History] OxyCODONE/APAP 5/325 [Percocet 5/325 MG] 1 each PO Q6HR PRN 5 Days #20 tablet [Rx] Rivaroxaban [Xarelto] 20 mg PO DAILY #30 tablet 01/10/18 [Rx] Allergies/Adverse Reactions: 3 Allergy/AdvReac Type Severity Reaction Status Date / Time No Known Allergies Allergy Verified 12/08/17 11:54 Date of admission: 01/10/18 13:07 Primary care physician: Elvis Arreaga MD Procedure(s) Performed: Left femoral to popliteal artery bypass graft thrombectomy with revision of the proximal anastamosis. Discharging clinician: Danny Lombardi Anticipated date of discharge: 01/11/18 Exam Vital Signs, Last 4 Hours Temp Pulse Resp BP Pulse Ox 01/10/18 16:53 98.2 F 129 18 176/118 100 - Patient Status Disposition: Home, Self-Care Condition: Good - Discharge Instructions Instructions: Oxycodone/Acetaminophen (By mouth), Rivaroxaban (By mouth), Femoropopliteal Bypass (DC) Follow Up With: Danny Lombardi MD [Partnered Physician] - 02/13/18 1:00 pm Elvis Arreaga MD [Primary Care Provider] - 01/22/18 9:00 am Additional Instructions: No lifting greater than 10 pounds. No automobile driving. Removed left lower extremity dressings tomorrow. Keep surgical site strive for a total of 5 days following surgery. Frequent ambulation. Elevate left lower extremity while sitting. Xarleto therapy for anticoagulation.
--- NOTE | 2018-01-10 17:37 | Anesthesia Evaluation Post Op ---
Date of Encounter: 01/10/18 Time of Encounter: 17:36 - Vital Signs Vital Signs: Vital Signs/O2 Sat/Glucose, Most Current Temp Pulse Resp BP Pulse Ox 01/10/18 17:03 106 20 157/104 98 01/10/18 16:53 98.2 F 129 18 176/118 100 - Lungs Lungs: Clear Ascult./Percussion - Airway Airway: Non-obstructed - Cardiovascular Regular Rate, Baseline Rhythm - Mental Status Mental Status: Alert & Oriented, Answers Appropriately, Baseline Status - Pain Pain Scale: 2 Pain Scale used: Numeric (1 - 10) - Nausea Vomiting Nausea Vomiting: Not Present - Hydration Hydration: Tolerates oral liquids, [place] catheter - Discharge PostOp Status: Transfer Patient to floor
[2018-01-10] MEDS ORDERED: OXYCODONE Oral CONC 10 MG/0.5 ML ORAL.SYG SL PRN ×2 (17:51)
[2018-01-10] MEDS ORDERED: Acetaminophen 325 MG TABLET PO PRN (17:51)
[2018-01-10] MEDS ORDERED: *HR* Metoprolol 5 MG/5 ML VIAL IVP SCH (18:00)
[2018-01-10] MEDS ORDERED: *HR* Rivaroxaban 10 MG TABLET PO SCH (18:00)
[2018-01-10] MEDS ORDERED: *HR* Heparin 5,000 UNIT/ML VIAL SQ SCH (18:00)
[2018-01-10] MEDS: *HR* HYDROcodone/Acet 5/325 mg TABLET PO PRN (19:20)
[2018-01-10] MEDS ORDERED: ceFAZolin 2,000 MG in 0.9 % Sodium Chloride 100 ML IVPB SCH (20:30)
[2018-01-10] MEDS: *HR* OxyCODONE Immed Rel 5 MG TABLET PO PRN (23:39)
[2018-01-11 04:55] LABS: Basophils % 0.2 %; Eosinophils % 0.1 %; Hematocrit 36.8 % (37.5-50.1); Immature Granulocytes % 0.4 % (0-4); Lymphocytes % 12.2 %; Mean Corpuscular HGB Conc 34.5 g/dL (31.6-35.5); Mean Corpuscular Hemoglobin 32.5 pg (28.0-33.3); Mean Corpuscular Volume 94.1 fL (83.0-100.0); Mean Platelet Volume 9.9 fL (9.4-12.4); Monocytes # 1.6 K/mcL (0.0-1.3); Monocytes % 9.7 %; Neutrophils # 12.6 K/mcL (1.6-8.9); Platelet Count 306 K/mcL (140-400); Red Blood Count 3.91 M/mcL (4.19-5.50); Red Cell Distribution Width 13.5 % (11.5-14.5); Segmented Neutrophils % 77.4 %
[2018-01-11 04:58] LABS: Hemoglobin 12.7 g/dL (12.9-16.9)
[2018-01-11 05:14] LABS: BUN/Creatinine Ratio 10 (6-26); Blood Urea Nitrogen 5 mg/dL (6-20); Calcium 9.2 mg/dL (8.6-10.3); Carbon Dioxide 27 mEq/L (23-29); Chloride 102 mEq/L (98-107); Glucose 117 mg/dL (70-105); Osmolality,Calculated 280 (280-300); Potassium 4.2 mEq/L (3.5-5.1); Sodium 136 mEq/L (136-145); eGFR For African Americans > 60 (> 60); eGFR For Non-African Americans > 60 (> 60)
[2018-01-11] MEDS: *HR* OxyCODONE Immed Rel 5 MG TABLET PO PRN ×2 (05:35→11:26)
[2018-01-11] MEDS: *HR* HYDROcodone/Acet 5/325 mg TABLET PO PRN (08:09)
[2018-01-11] MEDS ORDERED: (Umeclidinium Bromide [Incruse Ellipta] 62.5 MCG) IH SCH (09:00)
[2018-01-11] MEDS ORDERED: Aspirin Enteric Coated 81 MG Tablet PO SCH (09:00)
[2018-01-11] MEDS ORDERED: Nicotine 21 MG PATCH.TD24 TD SCH (09:00)
[2018-01-11 11:21] VITALS: BP 144/85
--- NOTE | 2018-01-11 15:09 | Discharge Summary ---
Orders not resulted at time of discharge: Pending orders 01/10/18 16:20 Surgical Pathology [PTH] Routine Date of Encounter: 01/11/18 Time of Encounter: 15:07 - Discharge Diagnosis (1) PAD (peripheral artery disease) Priority: Primary Status: Acute Comments: Acute occlusion of left femoral-popliteal bypass graft. Leading to emergency graft thrombectomy with revision yesterday. Patient has nondenominational of normal flow to left lower extremity. Gangrenous toes on left foot remained stable and dry. Due to the graft thrombosis the patient will be started on Xarleto therapy. (2) Tobacco abuse Priority: Secondary Status: Chronic Comments: Patient has long history of tobacco abuse. (3) COPD (chronic obstructive pulmonary disease) Priority: Secondary Status: Chronic Comments: Patient has COPD under medical management. Qualifiers: COPD type: emphysema Emphysema type: panlobular Qualified Code(s): J43.1 - Panlobular emphysema - Hospital Course Hospital course: Mr. Correa is a 57 year old male Who is status post a left femoral-popliteal bypass graft for gangrene of left toes. Patient presented to his primary care office yesterday with recurrent left lower extremity symptoms. The patient was referred to the emergency room. Dr. Lombardi was contacted. The patient was arranged to have emergency surgery yesterday for thrombectomy and revision of thrombosed left lower extremity bypass graft. The patient had no periprocedural complications. On postoperative day #1 the left foot was warm and pink. The patient was felt fit for discharge on the afternoon of postoperative day #1. He will be given a prescription for Xarleto therapy. - Time Spent with Patient Total time spent providing and/or coordinating discharge services: - Discharge Medications Prescriptions: OxyCODONE/APAP 5/325 [Percocet 5/325 MG] 1 each PO Q6HR PRN 5 Days #20 tablet PRN Reason: postoperative pain Rivaroxaban [Xarelto] 20 mg PO DAILY #30 tablet Home Medications: Albuterol Sulfate [Ventolin Hfa] 2 puff IH Q6H PRN 12/12/17 [History] Aspirin [Lo-Dose Aspirin EC] 81 mg PO DAILY 12/12/17 [History] Sertraline [Zoloft] 50 mg PO DAILY 12/12/17 [History] Umeclidinium [place] [Incruse Ellipta] 62.5 mcg IH DAILY 12/12/17 [History] diphenhydrAMINE HCl [Sleep Aid] 25 mg PO HS 12/12/17 [History] Ibuprofen [Motrin] 400 mg PO Q6HR PRN 01/10/18 [History] OxyCODONE/APAP 5/325 [Percocet 5/325 MG] 1 each PO Q6HR PRN 5 Days #20 tablet [Rx] Rivaroxaban [Xarelto] 20 mg PO DAILY #30 tablet 01/10/18 [Rx] Allergies/Adverse Reactions: 3 Allergy/AdvReac Type Severity Reaction Status Date / Time No Known Allergies Allergy Verified 12/08/17 11:54 Date of admission: 01/10/18 13:07 Primary care physician: Elvis Arreaga MD Consults: None Procedure(s) Performed: Thrombectomy of left lower extremity bypass graft with revision Discharging clinician: Javi Brooks Anticipated date of discharge: 01/11/18 Exam Vital Signs, Last 4 Hours Temp Pulse Resp BP Pulse Ox 01/11/18 11:20 98.5 F 89 16 144/85 98 General: Present: Conversant, No Apparent Distress Vascular: Present: Normal capillary refill, Color/Temperature (Patient demonstrates a hyperemic response following successful graft thrombectomy.), Surgical incisions (Dry dressings on the left groin and left thigh area). Absent: Cyanosis, Edema - Patient Status Disposition: Home, Self-Care Condition: Good Overall status at discharge: patient is progressing back to baseline - Discharge Instructions Follow Up With: Danny Lombardi MD [Partnered Physician] - 02/13/18 1:00 pm Elvis Arreaga MD [Primary Care Provider] - 01/22/18 9:00 am Additional Instructions: No lifting greater than 10 pounds. No automobile driving. Removed left lower extremity dressings tomorrow. Keep surgical site strive for a total of 5 days following surgery. Frequent ambulation. Elevate left lower extremity while sitting. Xarleto therapy for anticoagulation. - Diet and Activity Activity: increase activity as tolerated Diet: advance to your usual diet - VTE Documentation of Mechanical Device: Intermittent pneumatic compression device
== END 2018-01-11 16:40 | disposition home or self-care (01) | DRG 181 ==
LOC: EMEROO 10:12 → 2NNU 13:07
PROVIDERS: ADMIT Surgery; ATTEND Surgery

== ENCOUNTER 2018-08-28 09:54 | Inpatient (IN) ==
--- NOTE | 2018-08-28 10:18 | Emergency Department Note ---
Disposition Clinical Impression: Diminished pulses in lower extremity Femoral-popliteal bypass graft occlusion, left Qualifiers: Encounter type: subsequent encounter Qualified Code(s): T82.898D - Other specified complication of vascular prosthetic devices, implants and grafts, subsequent encounter Leukocytosis Qualifiers: Leukocytosis type: unspecified Qualified Code(s): D72.829 - Elevated white blood cell count, unspecified Disposition: Admitted As Inpatient Condition: Fair Referrals: Elvis Arreaga MD [Primary Care Provider] - Forms: ED Satisfaction Letter Time of Disposition: 13:12 General Adult HPI - General Chief complaint: ED Extremity Injury, Lower Stated complaint: Leg Pain Time Seen by Provider: 08/28/18 09:57 Source: patient, EMS Mode of arrival: EMS Limitations: no limitations Nursing Notes Reviewed: Yes Vital Signs Reviewed: Yes - History of Present Illness HPI Narrative: Patient is a 58-year-old male that presents the emergency department due to left lower extremity pain. Patient seen by primary care provider who sent him to the emergency department. Patient states that he has a history of a femoral bypass surgery with Dr. Lombardi. Patient states that over the past week he has had increased pain in his left lower extremity as well as feeling like his leg has been cold. There is concern from the outside clinician that there were no palpable pulses in the left leg. Patient states that the leg is become increasingly painful and was why he went to his primary care provider. Patient states that he is not having any other symptoms at this time. Patient states that he has noticed some discoloration in his toes however he has had this in the past when he required amputation of a toe due to it being completely black. Pain Scale: 10 - Related Data Home Medications Medication Instructions Recorded Confirmed Albuterol Sulfate [Ventolin Hfa] 2 puff IH Q6H PRN 12/12/17 02/14/18 Aspirin [Lo-Dose Aspirin EC] 81 mg PO HS 12/12/17 02/14/18 Sertraline [Zoloft] 50 mg PO DAILY 12/12/17 02/14/18 Umeclidinium [place] [Incruse 62.5 mcg IH DAILY 12/12/17 02/14/18 Ellipta] diphenhydrAMINE HCl [Sleep Aid] 25 mg PO HS 12/12/17 02/14/18 Ibuprofen [Motrin] 400 mg PO TID PRN 01/10/18 02/14/18 Atorvastatin [Lipitor] 10 mg PO DAILY 02/14/18 02/14/18 Methyl Salicylate/Menthol [Bengay] 1 appl TP DAILY 02/14/18 02/14/18 Rafi/Poly/Joni OINT [Triple 1 appl TP DAILY 02/14/18 02/14/18 Antibiotic Ointment] Ubidecarenone/Vit E Acetate [Co 1 cap PO DAILY 02/14/18 02/14/18 Q-10 100 mg Softgel] Previous Rx's Medication Instructions Recorded Rivaroxaban [Xarelto] 20 mg PO DAILY #30 tablet 01/10/18 HYDROcodone/Acet 5/325 mg [[place] 1 tab PO Q6H PRN 5 Days #20 tab 02/14/18 5-325 mg] Allergies Allergy/AdvReac Type Severity Reaction Status Date / Time No Known Allergies Allergy Verified 02/14/18 12:11 All systems ED: reviewed and negative except as stated. Constitutional: Denies: fever Cardiovascular: Denies: chest pain Respiratory: Denies: dyspnea Gastrointestinal: Denies: abdominal pain Musculoskeletal: Reports: other (Left leg pain.) Past Medical History - Past Medical History Medical history: Reports: asthma, COPD, hyperlipidemia, hypertension, TIA Surgical history: Reports: other Psychiatric history: Reports: anxiety, depression - Social History Smoking Status: Current every day smoker Smokeless Tobacco Status: No Alcohol use: Reports: occasionally Drug use: Reports: none Physical Exam - General Limitations: no limitations General appearance: alert, in no apparent distress - Head Head exam: atraumatic, normocephalic - Eye Eye exam: Present: normal appearance, EOMI - Neck Neck exam: Present: normal inspection, full ROM, trachea midline - Respiratory Respiratory exam: Present: normal lung sounds bilaterally. Absent: respiratory distress, wheezes - Cardiovascular Cardiovascular exam: Present: normal rhythm, tachycardia, normal heart sounds, +S1, +S2 - Abdominal Exam Abdominal exam: Present: soft, Non-Tender, normal bowel sounds - Extremities Exam Extremities exam: Present: other (Patient's lower extremity below the knee is cooler than the right. Patient does not have palpable or Doppler pulses in the distal lower extremity. There are scars on the patient's left leg from previous vascular surgery.) - Neurological Exam Neurological exam: Present: alert, oriented X3 - Psychiatric Psychiatric exam: Present: normal affect, normal mood - Skin Skin exam: Present: warm, dry, intact Course Vital Signs Temperature 98.3 F 08/28/18 09:59 Pulse Rate 109 08/28/18 09:59 Respiratory Rate 16 08/28/18 09:59 Blood Pressure 142/95 08/28/18 09:59 O2 Sat by Pulse Oximetry 100 08/28/18 09:59 Temperature 98.3 F 08/28/18 09:59 Pulse Rate 91 08/28/18 12:36 Respiratory Rate 20 08/28/18 12:36 Blood Pressure 154/98 08/28/18 12:36 O2 Sat by Pulse Oximetry 98 08/28/18 12:36 Oxygen Delivery Oxygen Delivery Room Air Medical Decision Making - MDM Narrative Medical decision making narrative: Based on the patient presenting to the emergency department with reports of his left lower tremor to being cold and painful there is a high concern that there could be potential for occlusion of an arterial vessel. We were not able to palpate his DP or PT pulses. We are unable to get Doppler pulses in DP or PT pulses. We will obtain ABIs as well as CTA of the left lower extremity. Also obtain basic laboratory testing. Called and spoke with Dr. Mills after getting the results of the SUNDEEP which showed an SUNDEEP of 0.1 with no pulses and the PTT are DP pulses and he recommended that we do a CTA of the left lower extremity. This was done which showedComplete occlusion of the left common femoral artery, [place] SFA, and left fem-pop bypass graft with flow in the left lower extremity all through small collaterals, with some contrast noted in the profundus femoris artery though heavy calcification is seen. Per radiology read. We will contact Dr. Lombardi again to discuss the findings of the CTA. 1255 called and spoke with Dr. Lombardi the vascular surgeon and he reviewed the imaging and stated that he would come see the patient at bedside. Stated that the patient would likely need to go to the OR. 1310 Dr. Lombardi came to bedside to evaluate the patient. Surgical consent was obtained. Dr. Lombardi recommended that 5000 units of heparin be given. This will be done prior to the patient being admitted. Patient will be admitted to his service and will likely go to the OR today. - Medical Records Medical records reviewed: Yes I reviewed the patient's medical records. - Lab Data Lab results reviewed: Yes I reviewed the patient's lab results. Result diagrams: 08/28/18 10:16 08/28/18 10:16 Lab Results 08/28/18 08/28/18 08/28/18 Range/Units 10:16 10:16 10:16 WBC 15.3 H (4.3-11.1) K/mcL RBC 4.97 (4.19-5.50) M/mcL Hgb 16.3 (12.9-16.9) g/dL Hct 46.6 (37.5-50.1) % MCV 93.8 (83.0-100.0) fL MCH 32.8 (28.0-33.3) pg MCHC 35.0 (31.6-35.5) g/dL RDW 12.9 (11.5-14.5) % Plt Count 345 (140-400) K/mcL MPV 10.7 (9.4-12.4) fL Immature Gran % 0.5 (0-4) % Seg Neutrophils % 71.9 % Lymphocytes % 19.0 % Monocytes % 7.3 % Eosinophils % 0.9 % Basophils % 0.4 % Neutrophils # 11.0 H (1.6-8.9) K/mcL Lymphocytes # 2.9 (0.6-4.6) K/mcL Monocytes # 1.1 (0.0-1.3) K/mcL Eosinophils # 0.1 (0.0-0.6) K/mcL Basophils # 0.1 (0.0-0.2) K/mcL PT 13.1 H (9.4-12.1) Seconds INR 1.2 Sodium 139 (136-145) mEq/L Potassium 3.8 (3.5-5.1) mEq/L Chloride 102 (98-107) mEq/L Carbon Dioxide 30 H (23-29) mEq/L BUN 10 (6-20) mg/dL Creatinine 0.67 L (0.70-1.30) mg/dL Est GFR ( Amer) > 60 (> 60) Est GFR (Non-Af Amer) > 60 (> 60) BUN/Creatinine Ratio 15 (6-26) Glucose 102 (70-105) mg/dL Calculated Osmolality 287 (280-300) Calcium 10.2 (8.6-10.3) mg/dL Specimen Rejected 08/28/18 Range/Units 10:56 WBC (4.3-11.1) K/mcL RBC (4.19-5.50) M/mcL Hgb (12.9-16.9) g/dL Hct (37.5-50.1) % MCV (83.0-100.0) fL MCH (28.0-33.3) pg MCHC (31.6-35.5) g/dL RDW (11.5-14.5) % Plt Count (140-400) K/mcL MPV (9.4-12.4) fL Immature Gran % (0-4) % Seg Neutrophils % % Lymphocytes % % Monocytes % % Eosinophils % % Basophils % % Neutrophils # (1.6-8.9) K/mcL Lymphocytes # (0.6-4.6) K/mcL Monocytes # (0.0-1.3) K/mcL Eosinophils # (0.0-0.6) K/mcL Basophils # (0.0-0.2) K/mcL PT (9.4-12.1) Seconds INR Sodium (136-145) mEq/L Potassium (3.5-5.1) mEq/L Chloride (98-107) mEq/L Carbon Dioxide (23-29) mEq/L BUN (6-20) mg/dL Creatinine (0.70-1.30) mg/dL Est GFR ( Amer) (> 60) Est GFR (Non-Af Amer) (> 60) BUN/Creatinine Ratio (6-26) Glucose (70-105) mg/dL Calculated Osmolality (280-300) Calcium (8.6-10.3) mg/dL Specimen Rejected Hemolyzed - Radiology Data Radiology results reviewed: Yes I reviewed the patient's radiology results. Lower Extremity CTA 08/28/18 10:21 IMPRESSION: Complete occlusion of the left common femoral artery, [place] SFA, and left fem-pop bypass graft with flow in the left lower extremity all through small collaterals, with some contrast noted in the profundus femoris artery though heavy calcification is seen. There are short segments of reconstitution within the popliteal artery followed by areas of occlusion. Reconstitution is seen through collaterals at the level of the proximal trifurcation arteries, with contrast seen within the anterior tibial artery to the proximal dorsal aspect of the foot. No contrast is seen in the peroneal artery or posterior tibial artery beyond the upper aspect of the ankle. This could be related to occlusion or timing of contrast bolus related to slow flow. No acute nonvascular abnormality is identified. Occlusion of the proximal SFA on the right, only partially imaged. D/ / Brennan Sim MD / Brennan Sim MD Interpreting Provider: Brennan Sim MD
[2018-08-28] MEDS ORDERED: Isovue-370 500 ML INFUS..BTL IV ONE (10:21)
[2018-08-28 10:36] LABS: Basophils # 0.1 K/mcL (0.0-0.2); Basophils % 0.4 %; Eosinophils # 0.1 K/mcL (0.0-0.6); Eosinophils % 0.9 %; Hematocrit 46.6 % (37.5-50.1); Hemoglobin 16.3 g/dL (12.9-16.9); Immature Granulocytes % 0.5 % (0-4); Lymphocytes # 2.9 K/mcL (0.6-4.6); Mean Corpuscular Hemoglobin 32.8 pg (28.0-33.3); Mean Corpuscular Volume 93.8 fL (83.0-100.0); Mean Platelet Volume 10.7 fL (9.4-12.4); Monocytes # 1.1 K/mcL (0.0-1.3); Monocytes % 7.3 %; Platelet Count 345 K/mcL (140-400); Red Blood Count 4.97 M/mcL (4.19-5.50); Red Cell Distribution Width 12.9 % (11.5-14.5); Segmented Neutrophils % 71.9 %
--- NOTE | 2018-08-28 10:42 | Emergency Department Note ---
Disposition Clinical Impression: Diminished pulses in lower extremity Femoral-popliteal bypass graft occlusion, left Qualifiers: Encounter type: subsequent encounter Qualified Code(s): T82.898D - Other specified complication of vascular prosthetic devices, implants and grafts, subsequent encounter Leukocytosis Qualifiers: Leukocytosis type: unspecified Qualified Code(s): D72.829 - Elevated white blood cell count, unspecified Disposition: Admitted As Inpatient Condition: Fair Referrals: Elvis Arreaga MD [Primary Care Provider] - Forms: ED Satisfaction Letter Time of Disposition: 13:19 General Adult HPI - General Chief complaint: ED Extremity Injury, Lower Stated complaint: Leg Pain Time Seen by Provider: 08/28/18 09:57 Source: patient, EMS Mode of arrival: EMS Limitations: no limitations - History of Present Illness Pain Scale: 10 - Related Data Home Medications Medication Instructions Recorded Confirmed Albuterol Sulfate [Ventolin Hfa] 2 puff IH Q6H PRN 12/12/17 02/14/18 Aspirin [Lo-Dose Aspirin EC] 81 mg PO HS 12/12/17 02/14/18 Sertraline [Zoloft] 50 mg PO DAILY 12/12/17 02/14/18 Umeclidinium [place] [Incruse 62.5 mcg IH DAILY 12/12/17 02/14/18 Ellipta] diphenhydrAMINE HCl [Sleep Aid] 25 mg PO HS 12/12/17 02/14/18 Ibuprofen [Motrin] 400 mg PO TID PRN 01/10/18 02/14/18 Atorvastatin [Lipitor] 10 mg PO DAILY 02/14/18 02/14/18 Methyl Salicylate/Menthol [[place]] 1 appl TP DAILY 02/14/18 02/14/18 Rafi/Poly/Joni OINT [Triple 1 appl TP DAILY 02/14/18 02/14/18 Antibiotic Ointment] Ubidecarenone/Vit E Acetate [Co 1 cap PO DAILY 02/14/18 02/14/18 Q-10 100 mg Softgel] Previous Rx's Medication Instructions Recorded Rivaroxaban [Xarelto] 20 mg PO DAILY #30 tablet 01/10/18 HYDROcodone/Acet 5/325 mg [[place] 1 tab PO Q6H PRN 5 Days #20 tab 02/14/18 5-325 mg] Allergies Allergy/AdvReac Type Severity Reaction Status Date / Time No Known Allergies Allergy Verified 02/14/18 12:11 Constitutional: Denies: fever Cardiovascular: Denies: chest pain Respiratory: Denies: dyspnea Gastrointestinal: Denies: abdominal pain Musculoskeletal: Reports: other (Left leg pain.) Past Medical History - Past Medical History Medical history: Reports: asthma, COPD, hyperlipidemia, hypertension, TIA Surgical history: Reports: other Psychiatric history: Reports: anxiety, depression - Social History Smoking Status: Current every day smoker Smokeless Tobacco Status: No Alcohol use: Reports: occasionally Drug use: Reports: none Physical Exam - General Limitations: no limitations General appearance: alert, in no apparent distress Course Vital Signs Temperature 98.3 F 08/28/18 09:59 Pulse Rate 109 08/28/18 09:59 Respiratory Rate 16 08/28/18 09:59 Blood Pressure 142/95 08/28/18 09:59 O2 Sat by Pulse Oximetry 100 08/28/18 09:59 Temperature 98.3 F 08/28/18 09:59 Pulse Rate 91 08/28/18 12:36 Respiratory Rate 20 08/28/18 12:36 Blood Pressure 154/98 08/28/18 12:36 O2 Sat by Pulse Oximetry 98 08/28/18 12:36 Oxygen Delivery Oxygen Delivery Room Air Medical Decision Making - Lab Data Result diagrams: 08/28/18 10:16 08/28/18 10:16 Lab Results 08/28/18 08/28/18 08/28/18 Range/Units 10:16 10:16 10:16 WBC 15.3 H (4.3-11.1) K/mcL RBC 4.97 (4.19-5.50) M/mcL Hgb 16.3 (12.9-16.9) g/dL Hct 46.6 (37.5-50.1) % MCV 93.8 (83.0-100.0) fL MCH 32.8 (28.0-33.3) pg MCHC 35.0 (31.6-35.5) g/dL RDW 12.9 (11.5-14.5) % Plt Count 345 (140-400) K/mcL MPV 10.7 (9.4-12.4) fL Immature Gran % 0.5 (0-4) % Seg Neutrophils % 71.9 % Lymphocytes % 19.0 % Monocytes % 7.3 % Eosinophils % 0.9 % Basophils % 0.4 % Neutrophils # 11.0 H (1.6-8.9) K/mcL Lymphocytes # 2.9 (0.6-4.6) K/mcL Monocytes # 1.1 (0.0-1.3) K/mcL Eosinophils # 0.1 (0.0-0.6) K/mcL Basophils # 0.1 (0.0-0.2) K/mcL PT 13.1 H (9.4-12.1) Seconds INR 1.2 Sodium 139 (136-145) mEq/L Potassium 3.8 (3.5-5.1) mEq/L Chloride 102 (98-107) mEq/L Carbon Dioxide 30 H (23-29) mEq/L BUN 10 (6-20) mg/dL Creatinine 0.67 L (0.70-1.30) mg/dL Est GFR ( Amer) > 60 (> 60) Est GFR (Non-Af Amer) > 60 (> 60) BUN/Creatinine Ratio 15 (6-26) Glucose 102 (70-105) mg/dL Calculated Osmolality 287 (280-300) Calcium 10.2 (8.6-10.3) mg/dL Specimen Rejected 08/28/18 Range/Units 10:56 WBC (4.3-11.1) K/mcL RBC (4.19-5.50) M/mcL Hgb (12.9-16.9) g/dL Hct (37.5-50.1) % MCV (83.0-100.0) fL MCH (28.0-33.3) pg MCHC (31.6-35.5) g/dL RDW (11.5-14.5) % Plt Count (140-400) K/mcL MPV (9.4-12.4) fL Immature Gran % (0-4) % Seg Neutrophils % % Lymphocytes % % Monocytes % % Eosinophils % % Basophils % % Neutrophils # (1.6-8.9) K/mcL Lymphocytes # (0.6-4.6) K/mcL Monocytes # (0.0-1.3) K/mcL Eosinophils # (0.0-0.6) K/mcL Basophils # (0.0-0.2) K/mcL PT (9.4-12.1) Seconds INR Sodium (136-145) mEq/L Potassium (3.5-5.1) mEq/L Chloride (98-107) mEq/L Carbon Dioxide (23-29) mEq/L BUN (6-20) mg/dL Creatinine (0.70-1.30) mg/dL Est GFR ( Amer) (> 60) Est GFR (Non-Af Amer) (> 60) BUN/Creatinine Ratio (6-26) Glucose (70-105) mg/dL Calculated Osmolality (280-300) Calcium (8.6-10.3) mg/dL Specimen Rejected Hemolyzed Critical Care Time Critical Care Time: Yes Total Critical Care Time: 35 Attestation: Critical care performed: Time is exclusive of separately billable procedures. Time includes: direct patient care, patient reassessment, coordination of patient care, interpretation of data (laboratory data, radiology data, and respiratory data), review of patient's medical records, medical consultation and documentation of patient care. Procedures included in critical care time: Procedures excluded from critical care time: Attestation Statement - Attestation Attestation: I examined this patient and my medical decision-making was reviewed with the Resident Physician. I agree with the documented findings, disposition and treatment plan as described except to the extent set forth below. Patient to the ED complaining of left leg pain. Onset 1 week ago. Saw his PCP today who sent him to the ED because his foot is cold. Patient complains of increasing pain and coldness to the foot. He has had a prior bypass surgery in that leg in November. On examination he is in no acute distress. He does not tenderness over the medel and dorsum of the foot. Foot is dusky. Cool. We were not able to palpate or Doppler DP or PT pulse. Plan. SUNDEEP was performed. ABIs 0.1. We will discuss with vascular surgery. Patient to CTA. CTA shows an occlusion. Patient was evaluated in ED by vascular surgery. Patient will go to the OR. We will give IV heparin. Lower Extremity CTA 08/28/18 10:21 IMPRESSION: Complete occlusion of the left common femoral artery, [place] SFA, and left fem-pop bypass graft with flow in the left lower extremity all through small collaterals, with some contrast noted in the profundus femoris artery though heavy calcification is seen. There are short segments of reconstitution within the popliteal artery followed by areas of occlusion. Reconstitution is seen through collaterals at the level of the proximal trifurcation arteries, with contrast seen within the anterior tibial artery to the proximal dorsal aspect of the foot. No contrast is seen in the peroneal artery or posterior tibial artery beyond the upper aspect of the ankle. This could be related to occlusion or timing of contrast bolus related to slow flow. No acute nonvascular abnormality is identified. Occlusion of the proximal SFA on the right, only partially imaged. D/ / Brennan Sim MD / Brennan Sim MD Interpreting Provider: Brennan Sim MD
[2018-08-28 10:48] LABS: INR 1.2; Prothrombin Time 13.1 Seconds (9.4-12.1)
[2018-08-28] MEDS ORDERED: *HR* FentaNYL (PF) 100 MCG/2 ML VIAL IVP ONE ×3 (10:50→14:41)
[2018-08-28 11:12] LABS: BUN/Creatinine Ratio 15 (6-26); Blood Urea Nitrogen 10 mg/dL (6-20); Calcium 10.2 mg/dL (8.6-10.3); Carbon Dioxide 30 mEq/L (23-29); Chloride 102 mEq/L (98-107); Glucose 102 mg/dL (70-105); Osmolality,Calculated 287 (280-300); Potassium 3.8 mEq/L (3.5-5.1); Sodium 139 mEq/L (136-145); eGFR For Non-African Americans > 60 (> 60)
[2018-08-28] MEDS ORDERED: *HR* Heparin 5,000 UNIT/ML VIAL IVP ONE (13:06)
--- NOTE | 2018-08-28 13:41 | Vascular/Endovascular H&P ---
Date of Encounter: 08/30/18 Time of Encounter: 12:50 Assessment and Plan (1) Atherosclerosis of left lower extremity with gangrene Status: Acute The patient is an acute left femoral to popliteal artery bypass graft occlusion. He has evidence of acute limb threatening ischemia. He has a diminished motor and sensory exam. His graft occluded is ankle-brachial index is 0.0. He was informed that given his delayed presentation he is at significant risk for limb loss on this admission. The patient will be admitted and given intravenous heparin. He will be scheduled for a left lower extremity thrombectomy with possible revision of his bypass graft. The risks, benefits alternatives were discussed and all questions were answered. He expressed understanding wishes to proceed. Qualifiers: Peripheral atherosclerosis artery type: bypass graft, nonbiological Qualified Code(s): I70.662 - Atherosclerosis of nonbiological bypass graft(s) of the extremities with gangrene, left leg (2) COPD (chronic obstructive pulmonary disease) Status: Chronic Qualifiers: COPD type: emphysema Emphysema type: panlobular Qualified Code(s): J43.1 - Panlobular emphysema (3) Essential hypertension Status: Chronic The patient was counseled regarding atherosclerotic risk factor reduction. (4) Tobacco abuse Status: Chronic The patient was counseled regarding smoking cessation. He is on the continued smoking would likely lead to limb loss, heart attack, stroke, organ failure and/or . History of Present Illness Chief complaint: Left lower extremity pain HPI: Mr. Correa is a 58 year old male with history of peripheral vascular disease with gangrene. The patient has s previously undergone a left femoral to popliteal artery bypass. The patient presented to the emergency room this morning with complaints of a one-week history of acute left lower extremity pain. He reports sensory and motor deficits. He he was evaluated by the emergency room and found to have an absent pulse. His vascular lab studies were abnormal and he underwent a CT scan. Vascular surgery was counseled for further evaluation. The patient denies any chest pain or shortness of breath. Past Med Surg Social Fam HX - Past Medical History Medical history: asthma, COPD, hyperlipidemia, hypertension, TIA Additional medical history: anxiety,depression,emphysema,peripheral vascular disease,post traumatic stress disorder,carpal tunnel left wrist,bilateral tendonitis Psychiatric history: anxiety, depression - Past Surgical History Surgical History: other Additional surgical history: carpal tunnel right,angioplasty,bypass,blood clot, amputation of toes to left foot - Social History Smoking Status: Current every day smoker Smokeless Tobacco Status: No Alcohol use: occasionally Drug use: none - Family History Father Hx Family Cardiac Disorders: Yes Mother Hx Family Cancer: Yes Medications and Allergies Albuterol Sulfate [Ventolin Hfa] 2 puff IH Q6H PRN 12/12/17 [History] Aspirin [Lo-Dose Aspirin EC] 81 mg PO HS 12/12/17 [History] Sertraline [Zoloft] 50 mg PO DAILY 12/12/17 [History] Umeclidinium [place] [Incruse Ellipta] 62.5 mcg IH DAILY 12/12/17 [History] Rivaroxaban [Xarelto] 20 mg PO DAILY #30 tablet 01/10/18 [Rx] Atorvastatin [Lipitor] 10 mg PO DAILY 02/14/18 [History] Melatonin [Melatin] 9 mg PO HS 08/28/18 [History] Naproxen Sodium [All Day Pain Relief] 440 mg PO Q12H PRN 08/28/18 [History] Nicotine Polacrilex [Nicotine Lozenge] 4 mg BC Q4H 08/28/18 [History] OxyCODONE/APAP 5/325 [Percocet 5/325 MG] 1 each PO Q6HR PRN 5 Days #20 tablet 08/29/18 [Rx] Allergy/AdvReac Type Severity Reaction Status Date / Time No Known Allergies Allergy Verified 02/14/18 12:11 All Systems Review: The remainder of the systems were reviewed and are negative Exam Vital Signs, Last 4 Hours Temp Pulse Resp BP Pulse Ox 08/28/18 13:34 97 18 159/103 97 08/28/18 12:36 91 20 154/98 98 08/28/18 10:46 101 14 153/91 95 08/28/18 09:59 98.3 F 109 16 142/95 100 General: Present: Conversant, No Apparent Distress HEENT: Present: Pupils equal Neck: Absent: JVD, Lymphadenopathy Cardiac: Present: Reg Rate and Rhythm, Normal S1 and S2 Lungs: Present: Normal Breath Sounds Neuro: Present: Alert and responsive, Motor nerves grossly intact (Diminished motor function noted in the left foot), Sensory nerves grossly intact (Decreased sensation reported in the left foot) Abdomen: Present: Soft Vascular: Present: Normal capillary refill (In the right lower extremity), Capillary refill delayed (In the left lower extremity), Pulse, absent (Left pedal pulses, left popliteal pulse), Cyanosis (Left forefoot cyanosis is present). Absent: Edema Skin: Present: No rashes noted on visualized skin Musculoskeletal: Absent: No Chest Wall Tenderness Results 08/29/18 06:14 08/29/18 06:14 Lab Results, Last 24 hours 08/28/18 08/28/18 08/28/18 10:16 10:16 10:16 WBC 15.3 H Hgb 16.3 Hct 46.6 Plt Count 345 INR 1.2 Sodium 139 Potassium 3.8 Chloride 102 Carbon Dioxide 30 H BUN 10 Creatinine 0.67 L Glucose 102 Calcium 10.2 - Imaging / Other Tests Non Invasive Vascular Testing: report reviewed CT/CTA: image reviewed
--- NOTE | 2018-08-28 15:05 | Anesthesia Evaluation PreOp ---
Date of Encounter: 08/28/18 Time of Encounter: 16:18 - Past History Planned Operation: LLE thrombectomy graft; pos revision (L fem-pop bypass) Cardiac History: HTN, Hyperlipidemia, Other (PAD) Pulmonary History: Smoker, COPD MONTESS[place]I PARAPROFESSIONAL History: TIA, Other (anxiety, ptsd) Anesthesia History: No Prior Anesthetic Complications Alcohol Use: occasionally Drug use: none Medications and Allergies Albuterol Sulfate [Ventolin Hfa] 2 puff IH Q6H PRN 12/12/17 [History] Aspirin [Lo-Dose Aspirin EC] 81 mg PO HS 12/12/17 [History] Sertraline [Zoloft] 50 mg PO DAILY 12/12/17 [History] Umeclidinium [place] [Incruse Ellipta] 62.5 mcg IH DAILY 12/12/17 [History] Rivaroxaban [Xarelto] 20 mg PO DAILY #30 tablet 01/10/18 [Rx] Atorvastatin [Lipitor] 10 mg PO DAILY 02/14/18 [History] Melatonin [Melatin] 9 mg PO HS 08/28/18 [History] Naproxen Sodium [All Day Pain Relief] 440 mg PO Q12H PRN 08/28/18 [History] Nicotine Polacrilex [Nicotine Lozenge] 4 mg BC Q4H 08/28/18 [History] Allergy/AdvReac Type Severity Reaction Status Date / Time No Known Allergies Allergy Verified 02/14/18 12:11 - Meds/Allergy Pre-op Review Medications Reviewed: Yes Allergies Reviewed: Yes Beta Blockers on Current Med List: No Anesthesia Results - Labs 08/28/18 10:16 08/28/18 10:16 - Imaging EKG: report reviewed, image reviewed (SR) Additional studies: Nuclear stress test: Perfusion imaging negative for ischemia/infarct Pharmacologic stress ECG negative for ischemia at the level of HR achieved Gated EF = 44% Mild global hypokinesis. Anesthesia Exam Last Vital Signs Temp 98.3 F 08/28/18 09:59 Pulse 85 08/28/18 14:33 Resp 14 08/28/18 14:33 BP 175/108 08/28/18 14:33 Pulse Ox 98 08/28/18 14:33 Weight: 59 kg - HEENT Pupil (Motor): Pupils equal, EOMI Mallampati: II Teeth: Edentulous Oral Opening: Greater than 3 - MONTESSORI PARAPROFESSIONAL LOC: Oriented - Cardiac Rhythm: Regular Murmur: None - Pulmonary Breath Sounds: bilateral Clear Respiratory Effort: Symmetrical Anesthesia Assess/Plan ASA Score: 3, E Level of consciousness: Cooperative Anesthetic Plan: General Monitoring Plan: Standard Monitors, A-Line Recovery Plan: PACU
[2018-08-28] MEDS ORDERED: *HR* Succinylcholine 200 MG/10 ML VIAL IVP ONE (15:59)
[2018-08-28] MEDS ORDERED: Vancomycin 1,000 MG VIAL ONE ×2 (16:00→16:30)
[2018-08-28] MEDS ORDERED: Heparin 1,000 UNITS/500 mL 1,000 ML ONE (16:01)
[2018-08-28] MEDS ORDERED: *HR* FentaNYL (PF) 100 MCG/2 ML VIAL ONE ×2 (16:03→17:00)
[2018-08-28] MEDS ORDERED: Ondansetron 4 MG/2 ML VIAL ONE (16:04)
[2018-08-28] MEDS ORDERED: Lidocaine -MPF 4% 5 ML AMPUL ONE (16:04)
[2018-08-28] MEDS ORDERED: *HR* Propofol 200 MG/20 ML VIAL IVP ONE (16:04)
[2018-08-28] MEDS ORDERED: *HR* Midazolam HCl 2 MG/2 ML VIAL ONE (16:04)
[2018-08-28] MEDS ORDERED: Lidocaine -MPF 2% 2 ML VIAL ONE ×2 (16:04→16:15)
[2018-08-28] MEDS ORDERED: *HR* Rocuronium Bromide 50 MG/5 ML VIAL ONE (16:04)
[2018-08-28] MEDS ORDERED: Dexamethasone 4 MG/ML VIAL ONE (16:04)
[2018-08-28] MEDS ORDERED: Heparin 1,000 UNITS/500 mL 500 ML ONE (16:12)
[2018-08-28] MEDS ORDERED: ceFAZolin 2,000 MG in Water for inj. (sterile) 20 ML 20 ML IVP ONE (16:25)
[2018-08-28] MEDS ORDERED: *HR* Remifentanil 2 MG VIAL IVP ONE (16:30)
[2018-08-28] MEDS ORDERED: *HR* Phenylephrine 10 MG/ML VIAL ONE (16:30)
[2018-08-28] MEDS ORDERED: *HR* PHENYLEPHRINE 1,000 MCG/10 ML SYRINGE IVP ONE (16:30)
[2018-08-28] MEDS ORDERED: Ondansetron 4 MG/2 ML VIAL IVP ONE (18:22)
[2018-08-28] MEDS ORDERED: *HR* OxyCODONE/APAP 5/325 TABLET PO PRN (18:22)
[2018-08-28] MEDS ORDERED: *HR* Morphine 10 MG/ML VIAL ONE (18:27)
[2018-08-28] MEDS ORDERED: *HR* Heparin 5,000 UNIT/ML VIAL ONE (18:55)
[2018-08-28] MEDS: *HR* HYDROmorphone (PF) 1 MG/ML SYRINGE IVP PRN ×4 (20:10→20:34)
--- NOTE | 2018-08-28 20:18 | Operative Note ---
Date of procedure: 08/28/18 Pre-op diagnosis: Acute left lower extremity ischemia Post-op diagnosis: same Procedure: 1. Left femoral to popliteal artery bypass graft thrombectomy via left thigh incision. 2. Left popliteal and anterior tibial, peroneal and posterior tibial artery thrombectomy via leg incision. Complications: None Anesthesia: GETA Surgeon: Danny Lombardi Was there an law office assistant present: No Estimated blood loss (cc): 100 Specimen: Left lower extremity thrombus and plaque Condition: stable Disposition: PACU Procedure in Detail: Indications: The patient is a 58-year-old male with a long history of hypertension, hyperlipidemia and tobacco abuse. He also has a history of peripheral vascular disease with gangrene. He is present undergone a left femoral to above-knee popliteal artery bypass. He has also required left third and fifth toe amputation. The patient presented to the emergency room with acute left lower extremity ischemia for approximately 1 week. His graft was noted to be occluded and his left ankle brachial index was 0.0. Given these findings intravenous anticoagulation and emergent revascularization was recommended to reduce his risk of limb loss. Procedure: The patient was identified in the preoperative area. The risks, benefits and alternatives were discussed and all questions were answered. The patient was then taken to the operating room and placed in the supine position on the operating room table. After the induction of general endotracheal anesthesia he was cleaned and draped in normal sterile fashion. His right medial thigh scar was opened sharply. Hemostasis was obtained with isaac ctrocautery. Through a process of blunt, sharp and electrocautery dissection the above-knee popliteal artery was dissected proximally and distally and surrounded with vessel loops. The distal graft and graft anastomosis were also dissected circumferentially. The patient received 5000 units of intravenous heparin. He also received additional heparin throughout the procedure to maintain adequate anticoagulation. A longitudinal graftotomy was made over the distal graft graft anastomosis. Well organized chronic thrombus was present. A 4 Aramis embolus to be catheter was passed proximally. Significant thrombus was retrieved and strong, antegrade pulsatile flow was noted. Additional passes with the catheter were performed in no additional thrombus was retrieved. The graft was flushed with heparinized saline and clamped. The catheter was then passed distally into the popliteal and tibial vessels. Significant thrombus was retrieved as well as segments of atherosclerotic plaque. Retrograde flow was noted in the vessel was flushed. The graftotomy was reapproximated with running 6-0 Prolene. Prior to completing the repair the vessels were flushed and then reoccluded after being infused with heparinized saline. Polyphasic signal was noted at distal anastomosis as well as in the proximal popliteal artery upon completion of the repair. However no Doppler signals could be identified in the distal popliteal or tibial vessels. Subsequently and the graft was noted to have no signal present. Recurrent thrombosis was suspected. A left medial calf incision was made longitudinally sharply through the skin. Hemostasis was obtained via electrocautery. Through a process of blunt, sharp and electrocautery dissection the muscle fascial planes were traversed and the below-knee popliteal artery was dissected and surrounded with vessel loops proximally and distally. No pulse was identified in the vessel. An arteriotomy was made. A 3-[place] Aramis catheter was inserted distally into the anterior tibial and tibial peroneal trunk vessels individually. Additional thrombus was retrieved from each vessel. Retrograde flow was noted through the vessels. Heparinized saline was infused into the vessels and tension was applied to the vessel loop. The 4-[place] Aramis catheter was then advanced retrograde through the popliteal artery, through the graft and into the common femoral artery. The balloon was inflated and removed. Significant thrombus was retrieved. This thrombus was noted to be fresh. Strong pulsatile flow was noted and additional passes revealed no further thrombus. The lumen was irrigated with heparinized saline. The arteriotomy was reapproximated with 6-0 Prolene. Flow was restored by removing tension from the vessel loops. Polyphasic signals were then noted in the dorsalis pedis and posterior tibial arteries. The wounds were irrigated with antibiotic containing saline. Platelet rich and platelet poor plasma were infused into the wounds. The wounds were then reapproximated with layer of 2-0 Vicryl followed by 2 layers of 3-0 Vicryl. A layer of 3-0 Monocryl was then used to reapproximate the skin. Sterile dressings were applied. The patient was not extubated and taken to the recovery room in stable condition.
[2018-08-28] MEDS ORDERED: *HR* Labetalol 20 MG/4 ML SYRINGE IVP ONE ×2 (20:35→20:39)
[2018-08-28] MEDS ORDERED: Acetaminophen IV 1,000 MG/100 ML INFUS..BTL IVPB ONE (20:36)
[2018-08-28] MEDS ORDERED: cloNIDine HCl 0.1 MG TABLET PO ONE (20:36)
[2018-08-28] MEDS ORDERED: *HR* HYDROmorphone (PF) 1 MG/ML SYRINGE IVP ONE (20:37)
[2018-08-28] MEDS ORDERED: Aspirin Enteric Coated 81 MG Tablet PO SCH (21:44)
[2018-08-28] MEDS ORDERED: Ondansetron 4 MG/2 ML VIAL IVP PRN (21:44)
[2018-08-28] MEDS ORDERED: Acetaminophen 325 MG TABLET PO PRN (21:44)
[2018-08-28] MEDS ORDERED: *HR* Labetalol 20 MG/4 ML SYRINGE IVP PRN (21:44)
[2018-08-28] MEDS ORDERED: Heparin 25,000 UNIT/500 ML D5W 25,000 UNIT/500 ML BAG IVC SCH (21:44)
[2018-08-28] MEDS ORDERED: *HR* Heparin 5,000 UNIT/ML VIAL IVP PRN ×2 (21:44)
[2018-08-28] MEDS ORDERED: OXYCODONE Oral CONC 10 MG/0.5 ML ORAL.SYG SL PRN ×2 (21:44)
[2018-08-28] MEDS ORDERED: Naloxone 0.4 MG/ML INJ IVP PRN (21:44)
[2018-08-28] MEDS ORDERED: *HR* HYDROcodone/Acet 5/325 mg TABLET PO PRN (21:44)
[2018-08-28] MEDS ORDERED: 0.9 % Sodium Chloride 1,000 ML IVC SCH (21:44)
[2018-08-28 22:12] LABS: Hematocrit 42.9 % (37.5-50.1); Hemoglobin 14.8 g/dL (12.9-16.9); Mean Corpuscular HGB Conc 34.5 g/dL (31.6-35.5); Mean Corpuscular Hemoglobin 32.4 pg (28.0-33.3); Mean Corpuscular Volume 93.9 fL (83.0-100.0); Mean Platelet Volume 10.2 fL (9.4-12.4); Platelet Count 284 K/mcL (140-400); Red Blood Count 4.57 M/mcL (4.19-5.50)
[2018-08-28 22:19] LABS: Heparin anti-factor XA UFH 0.15 IU/mL (0.30-0.70)
[2018-08-28 22:20] LABS: INR 1.1
[2018-08-28] MEDS: *HR* OxyCODONE Immed Rel 5 MG TABLET PO PRN (22:57)
[2018-08-28] MEDS: NICOTINE PO SCH (23:05)
[2018-08-29] MEDS: *HR* Metoprolol 5 MG/5 ML VIAL IVP SCH ×3 (00:15→12:29)
--- NOTE | 2018-08-29 01:32 | Anesthesia Evaluation Post Op ---
Date of Encounter: 08/29/18 Time of Encounter: 21:00 - Vital Signs Vital Signs: Vital Signs Temp Pulse Resp BP Pulse Ox 08/28/18 21:04 99.2 F 87 14 125/80 97 08/28/18 20:54 99.2 F 87 16 145/83 97 08/28/18 20:44 90 16 142/83 98 08/28/18 20:34 91 18 166/95 97 08/28/18 20:24 99.9 F H 93 18 163/98 97 08/28/18 20:14 90 20 164/101 98 08/28/18 20:04 100 20 161/90 97 08/28/18 19:54 99.1 F 113 20 197/93 99 08/28/18 15:51 96 14 160/88 98 08/28/18 14:33 85 14 175/108 98 08/28/18 13:34 97 18 159/103 97 08/28/18 12:36 91 20 154/98 98 08/28/18 10:46 101 14 153/91 95 08/28/18 09:59 98.3 F 109 16 142/95 100 - Lungs Lungs: Clear Ascult./Percussion - Airway Airway: Non-obstructed - Cardiovascular Regular Rate - Mental Status Mental Status: Alert & Oriented, Answers Appropriately - Pain Pain Scale: 6 Pain Scale used: Numeric (1 - 10) - Nausea Vomiting Nausea Vomiting: Not Present - Hydration Hydration: Ice chips, Has not voided - Discharge PostOp Status: Transfer Patient to floor Anes Supervising Prov Stmt: Pt seen/evaluated, VSS and has met criteria for discharge to floor. - MD Diya
[2018-08-29] MEDS ORDERED: Vancomycin 0 MG in D5% in Water 250 ML IVPB ONE (04:00)
[2018-08-29] MEDS: NICOTINE PO SCH ×4 (04:26→12:29)
[2018-08-29] MEDS: *HR* OxyCODONE Immed Rel 5 MG TABLET PO PRN (05:01)
[2018-08-29] MEDS ORDERED: *HR* Heparin 5,000 UNIT/ML VIAL SQ SCH (06:00)
[2018-08-29 06:24] LABS: Basophils % 0.1 %; Hematocrit 39.1 % (37.5-50.1); Hemoglobin 13.3 g/dL (12.9-16.9); Immature Granulocytes % 0.5 % (0-4); Lymphocytes # 1.6 K/mcL (0.6-4.6); Lymphocytes % 7.8 %; Mean Corpuscular Hemoglobin 32.1 pg (28.0-33.3); Mean Corpuscular Volume 94.4 fL (83.0-100.0); Mean Platelet Volume 10.1 fL (9.4-12.4); Neutrophils # 17.8 K/mcL (1.6-8.9); Platelet Count 240 K/mcL (140-400); Red Blood Count 4.14 M/mcL (4.19-5.50); Red Cell Distribution Width 13.2 % (11.5-14.5); Segmented Neutrophils % 86.6 %
[2018-08-29 06:44] LABS: BUN/Creatinine Ratio 18 (6-26); Blood Urea Nitrogen 11 mg/dL (6-20); Calcium 8.7 mg/dL (8.6-10.3); Carbon Dioxide 26 mEq/L (23-29); Chloride 103 mEq/L (98-107); Glucose 182 mg/dL (70-105); Osmolality,Calculated 282 (280-300); Potassium 4.1 mEq/L (3.5-5.1); Sodium 134 mEq/L (136-145); eGFR For Non-African Americans > 60 (> 60)
[2018-08-29 07:16] VITALS: BP 132/78
--- NOTE | 2018-08-29 07:56 | Discharge Summary ---
Orders not resulted at time of discharge: Pending orders 08/28/18 18:45 Surgical Pathology [PTH] Routine 08/29/18 13:00 Heparin anti-factor XA UFH [COAG] Timed Date of Encounter: 08/29/18 Time of Encounter: 07:50 - Discharge Diagnosis (1) Atherosclerosis of left lower extremity with gangrene Priority: Primary Status: Acute Comments: The patient is postoperative day #1 after a left lower extremity thrombectomy. His foot is warm. His motor and sensory is grossly intact. He has a polyphasic left dorsalis pedis signal. He has no hematomas. He will be discharged today. Qualifiers: Peripheral atherosclerosis artery type: bypass graft, nonbiological Qualified Code(s): I70.662 - Atherosclerosis of nonbiological bypass graft(s) of the extremities with gangrene, left leg (2) COPD (chronic obstructive pulmonary disease) Priority: Secondary Status: Chronic Qualifiers: COPD type: emphysema Emphysema type: panlobular Qualified Code(s): J43.1 - Panlobular emphysema (3) Essential hypertension Priority: Secondary Status: Chronic (4) Tobacco abuse Priority: Secondary Status: Chronic - Hospital Course Hospital course: Mr. Correa is a 58 year old male with history of peripheral vascular disease with gangrene, COPD, tobacco abuse and hypertension.. The patient is previously undergone a left femoral to popliteal artery bypass. He is chronically anticoagulated with Xarelto due to prior thrombotic events. He presented to the emergency room on 08/28/18 with acute left lower extremity ischemia. His graft was noted to be occluded and his ankle-brachial indexes 0.0. He was taken operating room where he underwent a left lower extremity graft thrombectomy as well as a tibial thrombectomy. He was treated with intravenous anticoagulation after his procedure. He tolerated the procedure well. On postoperative day #1 the patient was alert and appropriate. He had palpable pedal pulses. He was discharged home in stable condition on postoperative day #1 without competitions. Time spent discussing smoking cessation with patient: 3 to 10 minutes - Time Spent with Patient Total time spent providing and/or coordinating discharge services: - Discharge Medications Home Medications: RX: Albuterol Sulfate [Ventolin Hfa] 2 puff IH Q6H PRN 12/12/17 [History] RX: Aspirin [Lo-Dose Aspirin EC] 81 mg PO HS 12/12/17 [History] RX: Sertraline [Zoloft] 50 mg PO DAILY 12/12/17 [History] RX: Umeclidinium [place] [Incruse Ellipta] 62.5 mcg IH DAILY 12/12/17 [History] RX: Rivaroxaban [Xarelto] 20 mg PO DAILY #30 tablet 01/10/18 [Rx] RX: Atorvastatin [Lipitor] 10 mg PO DAILY 02/14/18 [History] RX: Melatonin [Melatin] 9 mg PO HS 08/28/18 [History] RX: Naproxen Sodium [All Day Pain Relief] 440 mg PO Q12H PRN 08/28/18 [History] RX: Nicotine Polacrilex [Nicotine Lozenge] 4 mg BC Q4H 08/28/18 [History] Allergies/Adverse Reactions: Allergy/AdvReac Type Severity Reaction Status Date / Time No Known Allergies Allergy Verified 02/14/18 12:11 Date of admission: 08/28/18 15:03 Primary care physician: Elvis Arreaga MD Procedure(s) Performed: Left lower extremity thrombectomy Discharging clinician: Danny Lombardi Anticipated date of discharge: 08/29/18 Exam Vital Signs, Last 4 Hours Temp Pulse Resp BP Pulse Ox 08/29/18 07:15 97.7 F 76 18 132/78 96 General: Present: Conversant, No Apparent Distress HEENT: Present: Pupils equal Cardiac: Present: Reg Rate and Rhythm Lungs: Present: Normal Breath Sounds Neuro: Present: Alert and responsive, No focal deficits noted Abdomen: Present: Soft Vascular: Present: Normal capillary refill, Surgical incisions (Clean, dry and intact without erythema, drainage or hematoma), Other (Biphasic right pedal signals, polyphasic left pedal signals). Absent: Cyanosis, Edema Skin: Present: No rashes noted on visualized skin - Patient Status Disposition: Home, Self-Care Condition: Fair Functional capacity at discharge: independent ambulation Overall status at discharge: patient is back to baseline - Discharge Instructions Instructions: Peripheral Vascular Disorders (DC) Follow Up With: Danny Lombardi MD [Partnered Physician] - 10/02/18 1:00 pm Elvis Arreaga MD [Primary Care Provider] - 09/04/18 10:30 am Additional Instructions: May remove bandage and shower on 08/30/2018. Wash wounds daily and pat to dry. Applied dry gauze to wounds daily for 7 days. No tub baths or swimming until 09/24/2018. Call [phone] with questions or concerns - Diet and Activity Activity: increase activity as tolerated Diet: advance to your usual diet
[2018-08-29] MEDS ORDERED: *HR* Rivaroxaban 10 MG TABLET PO ONE (08:09)
[2018-08-29] MEDS ORDERED: (Incruse Ellipta] 62.5 MCG) IH SCH (10:00)
== END 2018-08-29 13:24 | disposition home or self-care (01) | DRG 181 ==
LOC: EMEROOARM 09:54 → 2NNU 09:54 → OBSVTOIN 15:03 → 2NNU 16:10
PROVIDERS: ADMIT Surgery; ATTEND Surgery

== ENCOUNTER 2018-11-13 14:05 | Inpatient (IN) ==
[2018-11-13] MEDS ORDERED: Albuterol 2.5 MG/3 ML NEBULIZER IH ONE (14:29)
[2018-11-13] MEDS ORDERED: Ringers Solution, Lactated 1,000 ML IVC SCH (14:30)
[2018-11-13] MEDS ORDERED: Famotidine 20 MG/2 ML VIAL IVP ONE (14:57)
[2018-11-13] MEDS ORDERED: Acetaminophen IV 1,000 MG/100 ML INFUS..BTL IVPB ONE ×2 (14:57→20:25)
--- NOTE | 2018-11-13 15:00 | Anesthesia Evaluation PreOp ---
Date of Encounter: 11/13/18 Time of Encounter: 15:00 - Past History Planned Operation: Left Fem-Pop Thrombectomy, Possible Revision Cardiac History: HTN, Hyperlipidemia, Other (PVD) Pulmonary History: Smoker, COPD SLIP FILLER History: Denies Any Significant HX Other Medical History: Other (Depression) Anesthesia History: No Prior Anesthetic Complications Alcohol Use: occasionally Drug use: none Medications and Allergies Albuterol Sulfate [Ventolin Hfa] 2 puff IH Q6H PRN 12/12/17 [History] Aspirin [Lo-Dose Aspirin EC] 81 mg PO HS 12/12/17 [History] Sertraline [Zoloft] 50 mg PO DAILY 12/12/17 [History] Umeclidinium [place] [Incruse Ellipta] 62.5 mcg IH DAILY 12/12/17 [History] Rivaroxaban [Xarelto] 20 mg PO DAILY #30 tablet 01/10/18 [Rx] Atorvastatin [Lipitor] 10 mg PO DAILY 02/14/18 [History] Melatonin [Melatin] 9 mg PO HS 08/28/18 [History] Naproxen Sodium [All Day Pain Relief] 440 mg PO Q12H PRN 08/28/18 [History] Nicotine Polacrilex [Nicotine Lozenge] 4 mg BC Q4H 08/28/18 [History] Allergy/AdvReac Type Severity Reaction Status Date / Time No Known Allergies Allergy Verified 02/14/18 12:11 - Meds/Allergy Pre-op Review Medications Reviewed: Yes Allergies Reviewed: Yes Beta Blockers on Current Med List: No Anesthesia Results - Labs Laboratory Tests 11/11/18 11/11/18 14:20 14:20 Hgb 17.4 H Hct 49.8 Plt Count 298 Sodium 140 Potassium 3.9 BUN 9 Creatinine 0.64 L - Imaging EKG: report reviewed (SR) Additional studies: Stress Test 2018 negative for ischemia, EF 44% Anesthesia Exam O2 Sat Height 1.65 m Height 1.65 m Weight 59.421 kg Weight 59.421 kg O2 Sat by Pulse Oximetry 96 Vital Signs Temp Pulse Resp BP Pulse Ox 98.4 F 80 18 129/81 96 11/13/18 14:55 11/13/18 14:55 11/13/18 14:55 11/13/18 14:55 11/13/18 14:55 Height: 5'5 Weight: 131 lbs NPO (# of Hours): MN Pain Scale: 0 - HEENT Pupil (Motor): Pupils equal, EOMI Mallampati: II Oral Opening: Greater than 3 - SLIP FILLER LOC: Oriented SLIP FILLER Motor: Normal RUE, Normal LUE, Normal RLE, Normal LLE, Normal Face SLIP FILLER Sensory: Normal: RUE, LUE, RLE, LLE, Face - Cardiac Rhythm: Regular Murmur: None JVD: No Carotid Bruit: No - Pulmonary Breath Sounds: bilateral Clear Respiratory Effort: Symmetrical Anesthesia Assess/Plan ASA Score: 3 (HTN PVD COPD) Level of consciousness: Cooperative, Oriented Anesthetic Plan: General Autologous Blood: No Monitoring Plan: Standard Monitors Recovery Plan: PACU (Discussed GA, possible A-Line, agrees to proceed)
[2018-11-13] MEDS ORDERED: Heparin 1,000 UNITS/500 mL 500 ML ONE (15:19)
--- NOTE | 2018-11-13 16:38 | History & Physical Report ---
Date of Encounter: 11/13/18 Time of Encounter: 16:35 24 Hour HP Update - Instructions Instructions: If the History and Physical is less than 30 days old and was completed prior to A.M. admission and or procedure and has NOT been updated on calendar day of procedure please complete this update prior to performing procedure. - Update Patient reports changes in Medical Condition: No Changes in examination, assessment, or condition: No Changes in Medication: No Preop tests/diagnostics Reviewed: Yes Surgery Remains Indicated: Yes Consent for Planned Operative Procedure(s) Verified: Yes - Pre-Operative Checklist Preoperative Checklist Indicated: Yes Prophylactic Antibiotic Ordered: Yes (Vancomycin due to MRSA risk) Home Medications Include Beta Ann: No Beta Ann Taken Today (Day of Surgery): No Beta Ann Taken Yesterday (Day Prior to Surgery): No Is VTE Prophylaxis Indicated?: Yes
[2018-11-13] MEDS ORDERED: Heparin 1,000 UNITS/500 mL 1,000 ML ONE (16:49)
[2018-11-13] MEDS ORDERED: Vancomycin 1,000 MG VIAL ONE (16:50)
[2018-11-13] MEDS ORDERED: *HR* Rocuronium Bromide 50 MG/5 ML VIAL ONE (16:57)
[2018-11-13] MEDS ORDERED: Lidocaine -MPF 2% 2 ML VIAL ONE (16:57)
[2018-11-13] MEDS ORDERED: Lidocaine -MPF 4% 5 ML AMPUL ONE (16:57)
[2018-11-13] MEDS ORDERED: *HR* FentaNYL (PF) 100 MCG/2 ML VIAL ONE ×3 (16:57→18:56)
[2018-11-13] MEDS ORDERED: *HR* Midazolam HCl 2 MG/2 ML VIAL ONE (16:57)
[2018-11-13] MEDS ORDERED: Ondansetron 4 MG/2 ML VIAL ONE (16:57)
[2018-11-13] MEDS ORDERED: Dexamethasone 4 MG/ML VIAL ONE (16:57)
[2018-11-13] MEDS ORDERED: *HR* Propofol 200 MG/20 ML VIAL IVP ONE (16:58)
[2018-11-13] MEDS ORDERED: Neostigmine Methylsulfate 3 MG/3 ML SYRINGE ONE (17:03)
[2018-11-13] MEDS ORDERED: CeFAZolin Syr 2,000MG/20 ML 2,000 MG/20 ML SYRINGE IVPB ONE (17:16)
[2018-11-13] MEDS ORDERED: Vancomycin 1,000 MG, Sodium Chloride IRRigation 1,000 ML IR ONE (17:30)
[2018-11-13] MEDS ORDERED: *HR* PHENYLEPHRINE 1,000 MCG/10 ML SYRINGE IVP ONE (18:04)
[2018-11-13] MEDS ORDERED: *HR* Heparin 5,000 UNIT/ML VIAL ONE ×2 (18:23→18:34)
--- NOTE | 2018-11-13 20:06 | Operative Note ---
Date of procedure: 11/13/18 Pre-op diagnosis: Peripheral vascular disease with acute left lower extremity ischemia Post-op diagnosis: same Procedure: 1. Left femoral to popliteal artery bypass graft thrombectomy with 3-[place], 4- Wallisian and 5-[place] Aramis catheters. 2. Left tibial vessel exploration and posterior compartment fasciotomies. Complications: None Anesthesia: GETA Surgeon: Danny Lombardi Was there an automotive service assistant present: No Estimated blood loss (cc): 50 Specimen: Left lower extremity thrombus Condition: stable Disposition: PACU
[2018-11-13] MEDS ORDERED: *HR* HYDROmorphone 2 MG TABLET PO PRN (20:24)
[2018-11-13] MEDS ORDERED: *HR* OxyCODONE Immed Rel 5 MG TABLET PO PRN ×2 (20:24→21:20)
[2018-11-13] MEDS ORDERED: *HR* HYDROcodone/Acet 5/325 mg TABLET PO PRN (21:20)
[2018-11-13] MEDS ORDERED: *HR* Heparin 5,000 UNIT/ML VIAL IVP PRN ×2 (21:20)
[2018-11-13] MEDS ORDERED: Heparin 25,000 UNIT/500 ML D5W 25,000 UNIT/500 ML BAG IVC SCH (21:20)
[2018-11-13] MEDS ORDERED: 0.9 % Sodium Chloride 1,000 ML IVC SCH (21:20)
[2018-11-13] MEDS ORDERED: Melatonin 3 MG TABLET PO SCH (21:20)
[2018-11-13] MEDS ORDERED: Acetaminophen 325 MG TABLET PO PRN (21:20)
[2018-11-13] MEDS ORDERED: OXYCODONE Oral CONC 10 MG/0.5 ML ORAL.SYG SL PRN ×2 (21:20)
[2018-11-13] MEDS ORDERED: Ondansetron 4 MG/2 ML VIAL IVP PRN (21:20)
[2018-11-13] MEDS ORDERED: Naloxone 0.4 MG/ML INJ IVP PRN (21:20)
[2018-11-13] MEDS ORDERED: *HR* Labetalol 20 MG/4 ML SYRINGE IVP PRN (21:20)
--- NOTE | 2018-11-13 22:14 | Anesthesia Evaluation Post Op ---
Date of Encounter: 11/13/18 Time of Encounter: 20:50 - Vital Signs Vital Signs: Vital Signs/O2 Sat/Glucose, Most Current Temp Pulse Resp BP Pulse Ox 11/13/18 20:55 98.0 F 88 18 122/70 95 11/13/18 20:40 99.6 F 78 14 115/72 96 11/13/18 20:30 99.6 F 88 14 120/72 95 11/13/18 20:20 100 14 116/70 95 11/13/18 20:10 95 14 114/70 95 11/13/18 20:00 100 F H 108 14 142/78 100 - Lungs Lungs: Clear Ascult./Percussion - Airway Airway: Non-obstructed - Cardiovascular Baseline Rhythm - Mental Status Mental Status: Alert & Oriented, Answers Appropriately - Pain Pain Scale: 0 Pain Scale used: Numeric (1 - 10) - Nausea Vomiting Nausea Vomiting: Not Present - Hydration Hydration: Tolerates oral liquids, Ice chips, Moran catheter - Discharge PostOp Status: Transfer Patient to floor Anes Supervising Prov Stmt: Pt seen/evaluated, VSS And has met criteria for discharge to floor. - MD Diya
[2018-11-13] MEDS: Nicotine 2 MG GUM BC SCH (22:16)
[2018-11-14] MEDS: *HR* Metoprolol 5 MG/5 ML VIAL IVP SCH ×2 (00:25→05:43)
[2018-11-14 00:35] LABS: Hematocrit 38.3 % (37.5-50.1); Mean Corpuscular HGB Conc 34.2 g/dL (31.6-35.5); Mean Corpuscular Hemoglobin 32.3 pg (28.0-33.3); Mean Corpuscular Volume 94.6 fL (83.0-100.0); Mean Platelet Volume 10.3 fL (9.4-12.4); Platelet Count 239 K/mcL (140-400); Red Blood Count 4.05 M/mcL (4.19-5.50); Red Cell Distribution Width 13.4 % (11.5-14.5)
[2018-11-14 00:37] LABS: Hemoglobin 13.1 g/dL (12.9-16.9)
[2018-11-14 00:43] LABS: Heparin anti-factor XA UFH 0.05 IU/mL (0.30-0.70); INR 1.2
[2018-11-14] MEDS: Nicotine 2 MG GUM BC SCH ×2 (03:11→05:43)
[2018-11-14] MEDS ORDERED: Methyl Salicylate/Menthol 28 GM TUBE TP PRN (03:19)
[2018-11-14] MEDS ORDERED: Vancomycin 1,000 MG in D5% in Water 250 ML IVPB ONE (05:00)
[2018-11-14 06:35] LABS: Basophils % 0.2 %; Hematocrit 38.6 % (37.5-50.1); Hemoglobin 12.9 g/dL (12.9-16.9); Immature Granulocytes % 0.4 % (0-4); Lymphocytes # 1.3 K/mcL (0.6-4.6); Mean Corpuscular HGB Conc 33.4 g/dL (31.6-35.5); Mean Corpuscular Hemoglobin 31.9 pg (28.0-33.3); Mean Corpuscular Volume 95.3 fL (83.0-100.0); Mean Platelet Volume 10.5 fL (9.4-12.4); Monocytes # 0.7 K/mcL (0.0-1.3); Monocytes % 7.3 %; Neutrophils # 7.2 K/mcL (1.6-8.9); Platelet Count 224 K/mcL (140-400); Red Blood Count 4.05 M/mcL (4.19-5.50); Red Cell Distribution Width 13.4 % (11.5-14.5); Segmented Neutrophils % 78.1 %
[2018-11-14 06:52] LABS: BUN/Creatinine Ratio 11 (6-26); Blood Urea Nitrogen 7 mg/dL (6-20); Calcium 8.6 mg/dL (8.6-10.3); Carbon Dioxide 26 mEq/L (23-29); Chloride 104 mEq/L (98-107); Glucose 175 mg/dL (70-105); Osmolality,Calculated 286 (280-300); Sodium 137 mEq/L (136-145); eGFR For Non-African Americans > 60 (> 60)
[2018-11-14 07:38] VITALS: BP 125/65
--- NOTE | 2018-11-14 07:40 | Discharge Summary ---
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 His polyphasic pedal signals. His compartments are soft. He reports his left leg is feeling well. His incisions are healing well. He will be discharged today. (2) Tobacco abuse Status: Chronic (3) COPD (chronic obstructive pulmonary disease) Status: Chronic Qualifiers: (4) Essential hypertension Status: Chronic - Hospital Course Hospital course: Mr. Correa is a 58 year old male - Time Spent with Patient Total time spent providing and/or coordinating discharge services: - Discharge Medications Prescriptions: New OxyCODONE/APAP 5/325 [Percocet 5/325 MG] 1 each PO Q6HR PRN 7 Days #25 tablet PRN Reason: Postoperative pain Continue Sertraline [Zoloft] 50 mg PO DAILY Umeclidinium [place] [Incruse Ellipta] 62.5 mcg IH DAILY Aspirin [Lo-Dose Aspirin EC] 81 mg PO HS Albuterol Sulfate [Ventolin Hfa] 2 puff IH Q6H PRN PRN Reason: Shortness Of Breath Rivaroxaban [Xarelto] 20 mg PO DAILY #30 tablet Atorvastatin [Lipitor] 10 mg PO DAILY Melatonin [Melatin] 9 mg PO HS Naproxen Sodium [All Day Pain Relief] 440 mg PO Q12H PRN PRN Reason: Pain Nicotine Polacrilex [Nicotine Lozenge] 4 mg BC Q4H Rivaroxaban [Xarelto] 20 mg PO DAILY Aspirin [Lo-Dose Aspirin EC] 81 mg PO DAILY Melatonin [Melatin] 3 mg PO HS Sertraline [Zoloft] 50 mg PO DAILY Albuterol Sulfate [Ventolin Hfa] 90 mcg IH Q6-8H Umeclidinium [place] [Incruse Ellipta] 1 puff IH DAILY Atorvastatin [Lipitor] 10 mg PO DAILY Ubidecarenone [Coenzyme Q-10] 100 mg PO DAILY Lidocaine 4% CRM (LMX) 4 % Home Medications: Albuterol Sulfate [Ventolin Hfa] 2 puff IH Q6H PRN 12/12/17 [History] Aspirin [Lo-Dose Aspirin EC] 81 mg PO HS 12/12/17 [History] Sertraline [Zoloft] 50 mg PO DAILY 12/12/17 [History] Umeclidinium [place] [Incruse Ellipta] 62.5 mcg IH DAILY 12/12/17 [History] Rivaroxaban [Xarelto] 20 mg PO DAILY #30 tablet 01/10/18 [Rx] Atorvastatin [Lipitor] 10 mg PO DAILY 02/14/18 [History] Melatonin [Melatin] 9 mg PO HS 08/28/18 [History] Naproxen Sodium [All Day Pain Relief] 440 mg PO Q12H PRN 08/28/18 [History] Nicotine Polacrilex [Nicotine Lozenge] 4 mg BC Q4H 08/28/18 [History] Albuterol Sulfate [Ventolin Hfa] 90 mcg IH Q6-8H 11/13/18 [History] Aspirin [Lo-Dose Aspirin EC] 81 mg PO DAILY 11/13/18 [History] Atorvastatin [Lipitor] 10 mg PO DAILY 11/13/18 [History] Lidocaine 4% CRM (LMX) 4 % 11/13/18 [History] Melatonin [Melatin] 3 mg PO HS 11/13/18 [History] Rivaroxaban [Xarelto] 20 mg PO DAILY 11/13/18 [History] Sertraline [Zoloft] 50 mg PO DAILY 11/13/18 [History] Ubidecarenone [Coenzyme Q-10] 100 mg PO DAILY 11/13/18 [History] Umeclidinium [place] [Incruse Ellipta] 1 puff IH DAILY 11/13/18 [History] OxyCODONE/APAP 5/325 [Percocet 5/325 MG] 1 each PO Q6HR PRN 7 Days #25 tablet 11/14/18 [Rx] Allergies/Adverse Reactions: Allergy/AdvReac Type Severity Reaction Status Date / Time No Known Allergies Allergy Verified 02/14/18 12:11 Date of admission: 11/13/18 22:47 Primary care physician: Elvis Arreaga MD Exam Vital Signs, Last 4 Hours Temp Pulse Resp BP Pulse Ox 11/14/18 03:45 97.8 F 87 18 103/67 100 General: Present: Conversant, No Apparent Distress HEENT: Present: Pupils equal Cardiac: Present: Reg Rate and Rhythm Lungs: Present: Normal Breath Sounds Neuro: Present: Motor nerves grossly intact, Sensory nerves grossly intact Abdomen: Present: Soft Vascular: Present: Normal capillary refill, Pulse, normal, Surgical incisions (Clean, dry and intact without erythema or drainage). Absent: Cyanosis, Edema Skin: Present: No rashes noted on visualized skin - Patient Status Disposition: Home, Self-Care Condition: Good Functional capacity at discharge: independent ambulation Overall status at discharge: patient is back to baseline - Discharge Instructions Follow Up With: Danny Lombardi MD [Partnered Physician] - 11/29/18 1:00 pm Elvis ortega MD [Primary Care Provider] - 11/22/18 2:00 pm Additional Instructions: May remove bandages and shower on 11/15/2018. Wash wounds gently and pat to dry. No tub baths or swimming until 12/06/2018. Applied dry gauze to wounds daily for 7 days. Call [phone] with questions or concerns. - Diet and Activity Activity: increase activity as tolerated Diet: advance to your usual diet
[2018-11-14] MEDS ORDERED: *HR* Rivaroxaban 10 MG TABLET PO ONE (08:47)
[2018-11-14] MEDS ORDERED: Aspirin Enteric Coated 81 MG Tablet PO SCH (09:00)
[2018-11-14] MEDS ORDERED: *HR* Heparin 5,000 UNIT/ML VIAL SQ SCH (18:00)
== END 2018-11-14 11:18 | disposition home or self-care (01) | DRG 181 ==
LOC: SAMDAY 14:05 → 2NNU 22:47
PROVIDERS: ADMIT Surgery; ATTEND Surgery

== ENCOUNTER 2022-01-23 13:54 | Inpatient (IN) ==
[2022-01-23] MEDS ORDERED: 0.9 % Sodium Chloride 1,000 ML IVC ONE (14:10)
[2022-01-23] MEDS ORDERED: cefTRIAXone 1,000 MG in 0.9 % Sodium Chloride 10 ML IVP ONE (14:10)
[2022-01-23] MEDS ORDERED: Isovue-370 500 ML BOTTLE IVP ONE (14:11)
[2022-01-23 14:31] LABS: VBG HCO3 26 mEq/L (21-27); VBG PCO2 44 mmHg (41-51); VBG PH 7.39 pH Units (7.32-7.42); VBG PO2 26 mmHg (25-50)
[2022-01-23 14:33] LABS: Basophils % 0.3 %; Eosinophils % 0.2 %; Hematocrit 44.5 % (37.5-50.1); Hemoglobin 15.5 g/dL (12.9-16.9); Immature Granulocytes % 0.8 % (0-4); Lymphocytes # 0.8 K/mcL (0.6-4.6); Lymphocytes % 6.5 %; Mean Corpuscular HGB Conc 34.8 g/dL (31.6-35.5); Mean Corpuscular Hemoglobin 34.9 pg (28.0-33.3); Mean Corpuscular Volume 100.2 fL (83.0-100.0); Mean Platelet Volume 10.7 fL (9.4-12.4); Monocytes # 0.6 K/mcL (0.0-1.3); Neutrophils # 10.4 K/mcL (1.6-8.9); Platelet Count 333 K/mcL (140-400); Red Blood Count 4.44 M/mcL (4.19-5.50); Red Cell Distribution Width 12.6 % (11.5-14.5); Segmented Neutrophils % 87.2 %; White Blood Count 11.9 K/mcL (4.3-11.1)
[2022-01-23 14:34] LABS: INR 1.5; Prothrombin Time 16.9 Seconds (9.4-12.1)
[2022-01-23 14:36] LABS: Activated Partial Thrombo Time 34.5 Seconds (26.0-36.0)
[2022-01-23 15:34] LABS: Alanine Aminotransferase 32 Units/L (7-52); Albumin 4.3 g/dL (3.5-5.7); Albumin/Globulin Ratio 1.2 (1.1-2.2); Alkaline Phosphatase 86 Units/L (34-104); Aspartate Amino Transferase 29 Units/L (13-39); BUN/Creatinine Ratio 22 (6-26); Bilirubin,Direct 0.3 mg/dL (0.0-0.2); Bilirubin,Total 1.3 mg/dL (0.3-1.0); Blood Urea Nitrogen 35 mg/dL (8-23); Calcium 10.4 mg/dL (8.6-10.3); Carbon Dioxide 29 mEq/L (23-29); Chloride 90 mEq/L (98-107); Globulin 3.6 g/dL (2.4-3.5); Glucose 152 mg/dL (70-105); Lipase 89 Units/L (11-82); Magnesium 2.2 mg/dL (1.6-2.6); Osmolality,Calculated 293 (280-300); Phosphorous 4.1 mg/dL (2.7-4.5); Potassium 3.9 mEq/L (3.5-5.1); Sodium 136 mEq/L (136-145); Total Protein 7.9 g/dL (6.4-8.9); eGFR For African Americans 55 (> 60); eGFR For Non-African Americans 45 (> 60)
[2022-01-23 16:01] LABS: Troponin I < 0.03 ng/mL (< 0.04)
[2022-01-23] MEDS ORDERED: MetroNIDAZOLE 500 MG/100 ML 500 MG/100 ML BAG IVPB ONE (16:33)
[2022-01-23] MEDS ORDERED: Naloxone 0.4 MG/ML INJ IVP PRN (16:51)
[2022-01-23] MEDS ORDERED: Ondansetron 4 MG/2 ML VIAL IVP PRN (16:51)
[2022-01-23] MEDS ORDERED: Vancomycin (wt based) 1,000 MG VIAL IVPB SCH (17:00)
[2022-01-23 17:33] LABS: C-Reactive Protein 288 mg/L (Less than 10)
[2022-01-23 18:32] LABS: Influenza A PCR Negative (Negative); Influenza B PCR Negative (Negative); Resp. Syncytial Virus PCR Negative (Negative)
[2022-01-23 18:33] LABS: SARS-CoV-2 by PCR (In House) Negative (Negative)
[2022-01-23] MEDS: Cefepime HCl 2,000 MG in 0.9 % Sodium Chloride 10 ML IVP SCH (18:48)
[2022-01-23] MEDS: 0.9 % Sodium Chloride 1,000 ML IVC SCH (18:53)
[2022-01-24 02:34] LABS: Basophils % 0.1 %; Eosinophils % 0.1 %; Hematocrit 34.5 % (37.5-50.1); Immature Granulocytes % 0.4 % (0-4); Lymphocytes # 0.4 K/mcL (0.6-4.6); Lymphocytes % 4.6 %; Mean Corpuscular HGB Conc 34.8 g/dL (31.6-35.5); Mean Corpuscular Hemoglobin 35.5 pg (28.0-33.3); Mean Corpuscular Volume 102.1 fL (83.0-100.0); Mean Platelet Volume 10.6 fL (9.4-12.4); Monocytes # 0.6 K/mcL (0.0-1.3); Monocytes % 6.8 %; Platelet Count 240 K/mcL (140-400); Red Blood Count 3.38 M/mcL (4.19-5.50); Red Cell Distribution Width 12.1 % (11.5-14.5); White Blood Count 9.1 K/mcL (4.3-11.1)
[2022-01-24 02:50] LABS: BUN/Creatinine Ratio 35 (6-26); Blood Urea Nitrogen 25 mg/dL (8-23); Calcium 8.8 mg/dL (8.6-10.3); Carbon Dioxide 25 mEq/L (23-29); Chloride 102 mEq/L (98-107); Glucose 93 mg/dL (70-105); Magnesium 1.9 mg/dL (1.6-2.6); Osmolality,Calculated 292 (280-300); Potassium 3.7 mEq/L (3.5-5.1); Sodium 139 mEq/L (136-145); eGFR For African Americans > 60 (> 60); eGFR For Non-African Americans > 60 (> 60)
[2022-01-24] MEDS: Acetylcysteine 10% 2 ML INHSOL IH SCH ×4 (03:52→22:55)
[2022-01-24] MEDS: Ipratropium/Albuterol Neb 3 ML IH SCH ×4 (03:52→22:55)
[2022-01-24] MEDS: 0.9 % Sodium Chloride 1,000 ML IVC SCH ×2 (04:17→21:18)
[2022-01-24] MEDS ORDERED: *HR* OxyCODONE Immed Rel 5 MG TABLET PO PRN (04:19)
[2022-01-24 04:46] LABS: Bilirubin,Urine Negative (Negative); Blood,Urine Trace (Negative); Clarity,Urine Clear (Clear); Color,Urine Yellow (Yellow); Glucose,Urine (UA) Normal (Normal); Hyaline Casts,Urine Many per lpf (None Seen); Ketones,Urine 40 mg/dL (Negative); Leukocyte Esterase,Urine Negative (Negative); Mucus,Urine Few per lpf (None-Few); Nitrite,Urine Negative (Negative); Protein,Urine 50 mg/dL (Neg-Trace); Specific Gravity,Urine > 1.030 (1.010-1.025); Squamous Epithelial Cell,Urine Few per hpf (None-Few); Urobilinogen,Urine Normal (Normal)
[2022-01-24] MEDS: Cefepime HCl 2,000 MG in 0.9 % Sodium Chloride 10 ML IVP SCH ×2 (04:52→17:15)
[2022-01-24] MEDS ORDERED: MethylPREDNISolone 40 MG/ML VIAL IVP SCH (06:00)
[2022-01-24] MEDS ORDERED: Pregabalin 75 MG CAPSULE PO SCH (09:00)
[2022-01-24] MEDS ORDERED: Chlorhexidine Rinse 15 ML MOUTHWASH MM SCH (09:00)
[2022-01-24] MEDS ORDERED: Budesonide/Formoterol 160/4.5 1 PUFF INH IH SCH (10:00)
[2022-01-24] MEDS ORDERED: Ondansetron 4 MG/2 ML VIAL ONE (12:04)
[2022-01-24] MEDS ORDERED: *HR* Rocuronium Bromide 50 MG/5 ML VIAL ONE (12:04)
[2022-01-24] MEDS ORDERED: Lidocaine -MPF 2% 2 ML VIAL ONE (12:04)
[2022-01-24] MEDS ORDERED: *HR* FentaNYL (PF) 100 MCG/2 ML VIAL ONE (12:06)
[2022-01-24] MEDS ORDERED: *HR* Propofol 200 MG/20 ML VIAL IVP ONE (12:06)
[2022-01-24] MEDS ORDERED: Albuterol 2.5 MG/3 ML NEBULIZER IH PRN ×2 (12:26→16:27)
[2022-01-24] MEDS ORDERED: Ondansetron 4 MG/2 ML VIAL IVP PRN ×3 (12:26→16:27)
[2022-01-24] MEDS ORDERED: ceFAZolin 2,000 MG in Water for inj. (sterile) 20 ML IVP ONE (13:14)
[2022-01-24] MEDS ORDERED: *HR* HYDROMORPHONE 2 MG/ML VIAL ONE (13:17)
[2022-01-24] MEDS ORDERED: Sugammadex Sodium 200 MG/2 ML VIAL IV ONE ×2 (13:42→14:06)
[2022-01-24] MEDS ORDERED: CeFAZolin Syr 2,000MG/20 ML 2,000 MG/20 ML SYRINGE IVPB ONE (13:45)
[2022-01-24] MEDS: *HR* HYDROmorphone PF 0.5 MG/0.5 ML SYRINGE IVP PRN ×4 (14:23→14:53)
[2022-01-24] MEDS ORDERED: Ringers Solution, Lactated 1,000 ML ONE (14:29)
[2022-01-24] MEDS ORDERED: 0.9 % Sodium Chloride 1,000 ML IVC SCH (15:45)
[2022-01-24] MEDS ORDERED: Naloxone 0.4 MG/ML INJ IVP PRN (16:27)
[2022-01-24] MEDS: MethylPREDNISolone 40 MG/ML VIAL IVP SCH (17:14)
[2022-01-24] MEDS: Budesonide/Formoterol 160/4.5 1 PUFF INH IH SCH (22:55)
[2022-01-25] MEDS: Ipratropium/Albuterol Neb 3 ML IH SCH ×4 (04:00→20:13)
[2022-01-25] MEDS: Acetylcysteine 10% 2 ML INHSOL IH SCH ×4 (04:00→20:14)
[2022-01-25 06:01] LABS: Basophils % 0.1 %; Hematocrit 30.9 % (37.5-50.1); Hemoglobin 10.6 g/dL (12.9-16.9); Immature Granulocytes % 0.8 % (0-4); Lymphocytes # 0.3 K/mcL (0.6-4.6); Lymphocytes % 3.5 %; Mean Corpuscular HGB Conc 34.3 g/dL (31.6-35.5); Mean Corpuscular Hemoglobin 35.5 pg (28.0-33.3); Mean Corpuscular Volume 103.3 fL (83.0-100.0); Mean Platelet Volume 10.7 fL (9.4-12.4); Monocytes # 0.3 K/mcL (0.0-1.3); Monocytes % 4.2 %; Neutrophils # 6.7 K/mcL (1.6-8.9); Platelet Count 225 K/mcL (140-400); Red Blood Count 2.99 M/mcL (4.19-5.50); Red Cell Distribution Width 12.3 % (11.5-14.5); Segmented Neutrophils % 91.4 %; White Blood Count 7.3 K/mcL (4.3-11.1)
[2022-01-25] MEDS: Cefepime HCl 2,000 MG in 0.9 % Sodium Chloride 10 ML IVP SCH ×2 (06:03→17:33)
[2022-01-25] MEDS: MethylPREDNISolone 40 MG/ML VIAL IVP SCH ×2 (06:04→17:33)
[2022-01-25 06:20] LABS: BUN/Creatinine Ratio 15 (6-26); Blood Urea Nitrogen 8 mg/dL (8-23); Carbon Dioxide 27 mEq/L (23-29); Chloride 99 mEq/L (98-107); Glucose 117 mg/dL (70-105); Potassium 2.8 mEq/L (3.5-5.1); Sodium 138 mEq/L (136-145); eGFR For African Americans > 60 (> 60); eGFR For Non-African Americans > 60 (> 60)
[2022-01-25 06:21] LABS: Alanine Aminotransferase 22 Units/L (7-52); Albumin 3.4 g/dL (3.5-5.7); Albumin/Globulin Ratio 1.3 (1.1-2.2); Alkaline Phosphatase 57 Units/L (34-104); Aspartate Amino Transferase 27 Units/L (13-39); Bilirubin,Total 0.5 mg/dL (0.3-1.0); Calcium 8.6 mg/dL (8.6-10.3); Globulin 2.7 g/dL (2.4-3.5); Osmolality,Calculated 285 (280-300); Total Protein 6.1 g/dL (6.4-8.9)
[2022-01-25 06:22] LABS: BUN/Creatinine Ratio 16 (6-26); Blood Urea Nitrogen 8 mg/dL (8-23); Calcium 8.6 mg/dL (8.6-10.3); Carbon Dioxide 25 mEq/L (23-29); Chloride 99 mEq/L (98-107); Glucose 117 mg/dL (70-105); Magnesium 1.5 mg/dL (1.6-2.6); Osmolality,Calculated 285 (280-300); Potassium 2.9 mEq/L (3.5-5.1); Sodium 138 mEq/L (136-145); eGFR For African Americans > 60 (> 60); eGFR For Non-African Americans > 60 (> 60)
[2022-01-25] MEDS: 0.9 % Sodium Chloride 1,000 ML IVC SCH (07:11)
[2022-01-25] MEDS: Levothyroxine Sodium 100 MCG VIAL IVP SCH (07:54)
[2022-01-25] MEDS: Potassium Chloride 40 MEQ in D5% in 0.9% NACL 1,000 ML IVC SCH (09:08)
[2022-01-25] MEDS: Budesonide/Formoterol 160/4.5 1 PUFF INH IH SCH ×2 (11:02→20:14)
[2022-01-25] MEDS: MetroNIDAZOLE 500 MG/100 ML 500 MG/100 ML BAG IVPB SCH (16:14)
[2022-01-26] MEDS: MetroNIDAZOLE 500 MG/100 ML 500 MG/100 ML BAG IVPB SCH ×3 (00:17→16:54)
[2022-01-26] MEDS: Ipratropium/Albuterol Neb 3 ML IH SCH ×4 (04:08→20:59)
[2022-01-26] MEDS: Acetylcysteine 10% 2 ML INHSOL IH SCH ×4 (04:08→20:59)
[2022-01-26 05:33] LABS: Hematocrit 29.4 % (37.5-50.1); Hemoglobin 10.6 g/dL (12.9-16.9); Immature Granulocytes % 0.7 % (0-4); Lymphocytes # 0.3 K/mcL (0.6-4.6); Lymphocytes % 4.2 %; Mean Corpuscular HGB Conc 36.1 g/dL (31.6-35.5); Mean Corpuscular Hemoglobin 35.7 pg (28.0-33.3); Mean Platelet Volume 10.2 fL (9.4-12.4); Monocytes # 0.4 K/mcL (0.0-1.3); Neutrophils # 6.1 K/mcL (1.6-8.9); Platelet Count 212 K/mcL (140-400); Red Blood Count 2.97 M/mcL (4.19-5.50); Red Cell Distribution Width 12.3 % (11.5-14.5); Segmented Neutrophils % 89.1 %; White Blood Count 6.9 K/mcL (4.3-11.1)
[2022-01-26 05:49] LABS: BUN/Creatinine Ratio 11 (6-26); Blood Urea Nitrogen 5 mg/dL (8-23); Calcium 8.9 mg/dL (8.6-10.3); Carbon Dioxide 31 mEq/L (23-29); Chloride 96 mEq/L (98-107); Glucose 120 mg/dL (70-105); Magnesium 1.7 mg/dL (1.6-2.6); Osmolality,Calculated 282 (280-300); Potassium 2.9 mEq/L (3.5-5.1); Sodium 137 mEq/L (136-145); eGFR For African Americans > 60 (> 60); eGFR For Non-African Americans > 60 (> 60)
[2022-01-26] MEDS: MethylPREDNISolone 40 MG/ML VIAL IVP SCH ×2 (07:18→16:54)
[2022-01-26] MEDS: Cefepime HCl 2,000 MG in 0.9 % Sodium Chloride 10 ML IVP SCH ×2 (07:18→16:53)
[2022-01-26] MEDS ORDERED: Potassium Phosphate 44 MEQ in 0.9 % Sodium Chloride 250 ML IVPB ONE (08:05)
[2022-01-26] MEDS: Potassium Chloride 40 MEQ in D5% in 0.9% NACL 1,000 ML IVC SCH ×3 (08:30→21:12)
[2022-01-26] MEDS: Levothyroxine Sodium 100 MCG VIAL IVP SCH (08:31)
[2022-01-26] MEDS: Budesonide/Formoterol 160/4.5 1 PUFF INH IH SCH ×2 (10:43→21:03)
[2022-01-26 17:49] LABS: BUN/Creatinine Ratio 10 (6-26); Blood Urea Nitrogen 5 mg/dL (8-23); Calcium 8.1 mg/dL (8.6-10.3); Carbon Dioxide 33 mEq/L (23-29); Chloride 99 mEq/L (98-107); Glucose 123 mg/dL (70-105); Osmolality,Calculated 283 (280-300); Potassium 2.9 mEq/L (3.5-5.1); Sodium 137 mEq/L (136-145); eGFR For African Americans > 60 (> 60); eGFR For Non-African Americans > 60 (> 60)
[2022-01-27] MEDS: MetroNIDAZOLE 500 MG/100 ML 500 MG/100 ML BAG IVPB SCH ×4 (00:09→23:52)
[2022-01-27] MEDS: Ipratropium/Albuterol Neb 3 ML IH SCH ×4 (03:43→19:51)
[2022-01-27] MEDS: Acetylcysteine 10% 2 ML INHSOL IH SCH ×4 (03:43→19:51)
[2022-01-27] MEDS: Cefepime HCl 2,000 MG in 0.9 % Sodium Chloride 10 ML IVP SCH ×2 (05:19→17:29)
[2022-01-27] MEDS: MethylPREDNISolone 40 MG/ML VIAL IVP SCH (05:19)
[2022-01-27 06:21] LABS: Basophils % 0.2 %; Hematocrit 27.3 % (37.5-50.1); Hemoglobin 9.6 g/dL (12.9-16.9); Immature Granulocytes % 1.2 % (0-4); Lymphocytes # 0.2 K/mcL (0.6-4.6); Lymphocytes % 4.2 %; Mean Corpuscular HGB Conc 35.2 g/dL (31.6-35.5); Mean Corpuscular Hemoglobin 35.7 pg (28.0-33.3); Mean Corpuscular Volume 101.5 fL (83.0-100.0); Mean Platelet Volume 10.6 fL (9.4-12.4); Monocytes # 0.4 K/mcL (0.0-1.3); Monocytes % 7.4 %; Neutrophils # 4.4 K/mcL (1.6-8.9); Platelet Count 188 K/mcL (140-400); Red Blood Count 2.69 M/mcL (4.19-5.50); Red Cell Distribution Width 12.2 % (11.5-14.5)
[2022-01-27 06:58] LABS: BUN/Creatinine Ratio 14 (6-26); Blood Urea Nitrogen 5 mg/dL (8-23); Calcium 7.7 mg/dL (8.6-10.3); Carbon Dioxide 29 mEq/L (23-29); Chloride 99 mEq/L (98-107); Glucose 181 mg/dL (70-105); Magnesium 1.6 mg/dL (1.6-2.6); Osmolality,Calculated 278 (280-300); Potassium 3.8 mEq/L (3.5-5.1); Sodium 133 mEq/L (136-145); eGFR For African Americans > 60 (> 60); eGFR For Non-African Americans > 60 (> 60)
[2022-01-27] MEDS ORDERED: *HR* OxyCODONE Immed Rel 5 MG TABLET GTUBE SCH (09:00)
[2022-01-27] MEDS: Levothyroxine Sodium 100 MCG VIAL IVP SCH (09:40)
[2022-01-27] MEDS: *HR* OxyCODONE Immed Rel 5 MG TABLET GTUBE PRN ×2 (09:41→20:29)
[2022-01-27] MEDS: Pregabalin 75 MG CAPSULE GTUBE SCH ×2 (09:42→20:29)
[2022-01-27] MEDS: predniSONE 20 MG TABLET GTUBE SCH (09:42)
[2022-01-27] MEDS: Budesonide/Formoterol 160/4.5 1 PUFF INH IH SCH ×2 (09:52→19:51)
[2022-01-27 10:55] LABS: Phosphorous 1.5 mg/dL (2.7-4.5)
[2022-01-28] MEDS: Acetylcysteine 10% 2 ML INHSOL IH SCH ×4 (03:37→19:26)
[2022-01-28] MEDS: Ipratropium/Albuterol Neb 3 ML IH SCH ×4 (03:37→19:26)
[2022-01-28] MEDS: *HR* OxyCODONE Immed Rel 5 MG TABLET GTUBE PRN ×3 (04:12→17:55)
[2022-01-28] MEDS: Cefepime HCl 2,000 MG in 0.9 % Sodium Chloride 10 ML IVP SCH ×2 (04:13→17:55)
[2022-01-28 04:50] LABS: Basophils % 0.2 %; Eosinophils % 0.2 %; Hematocrit 30.3 % (37.5-50.1); Hemoglobin 10.7 g/dL (12.9-16.9); Immature Granulocytes % 3.1 % (0-4); Lymphocytes # 0.5 K/mcL (0.6-4.6); Lymphocytes % 8.5 %; Mean Corpuscular HGB Conc 35.3 g/dL (31.6-35.5); Mean Corpuscular Hemoglobin 35.9 pg (28.0-33.3); Mean Corpuscular Volume 101.7 fL (83.0-100.0); Mean Platelet Volume 10.3 fL (9.4-12.4); Monocytes # 0.4 K/mcL (0.0-1.3); Monocytes % 7.1 %; Neutrophils # 4.5 K/mcL (1.6-8.9); Platelet Count 195 K/mcL (140-400); Red Blood Count 2.98 M/mcL (4.19-5.50); Red Cell Distribution Width 12.2 % (11.5-14.5); Segmented Neutrophils % 80.9 %; White Blood Count 5.5 K/mcL (4.3-11.1)
[2022-01-28 05:01] LABS: BUN/Creatinine Ratio 20 (6-26); Blood Urea Nitrogen 8 mg/dL (8-23); Calcium 7.7 mg/dL (8.6-10.3); Carbon Dioxide 34 mEq/L (23-29); Chloride 94 mEq/L (98-107); Glucose 91 mg/dL (70-105); Magnesium 1.7 mg/dL (1.6-2.6); Osmolality,Calculated 274 (280-300); Phosphorous 2.5 mg/dL (2.7-4.5); Potassium 3.3 mEq/L (3.5-5.1); Sodium 133 mEq/L (136-145); eGFR For African Americans > 60 (> 60); eGFR For Non-African Americans > 60 (> 60)
[2022-01-28] MEDS ORDERED: Potassium Chloride Elixir 20 MEQ/15 ML UDC GTUBE ONE (08:02)
[2022-01-28] MEDS: MetroNIDAZOLE 500 MG/100 ML 500 MG/100 ML BAG IVPB SCH ×2 (08:12→17:54)
[2022-01-28] MEDS: Finasteride 5 MG TABLET PO SCH (08:12)
[2022-01-28] MEDS: Pregabalin 75 MG CAPSULE GTUBE SCH ×2 (08:12→20:15)
[2022-01-28] MEDS: predniSONE 20 MG TABLET GTUBE SCH (08:12)
[2022-01-28] MEDS: Budesonide/Formoterol 160/4.5 1 PUFF INH IH SCH ×2 (10:07→19:25)
[2022-01-29] MEDS: *HR* OxyCODONE Immed Rel 5 MG TABLET GTUBE PRN ×4 (00:09→23:16)
[2022-01-29] MEDS: MetroNIDAZOLE 500 MG/100 ML 500 MG/100 ML BAG IVPB SCH ×4 (00:09→23:16)
[2022-01-29 02:40] LABS: Basophils % 0.2 %; Eosinophils % 0.6 %; Immature Granulocytes % 2.1 % (0-4); Lymphocytes # 0.5 K/mcL (0.6-4.6); Lymphocytes % 8.7 %; Mean Corpuscular HGB Conc 34.5 g/dL (31.6-35.5); Mean Corpuscular Hemoglobin 35.6 pg (28.0-33.3); Mean Corpuscular Volume 103.2 fL (83.0-100.0); Mean Platelet Volume 10.7 fL (9.4-12.4); Monocytes # 0.4 K/mcL (0.0-1.3); Monocytes % 6.8 %; Neutrophils # 4.2 K/mcL (1.6-8.9); Platelet Count 181 K/mcL (140-400); Red Blood Count 2.81 M/mcL (4.19-5.50); Red Cell Distribution Width 12.3 % (11.5-14.5); Segmented Neutrophils % 81.6 %; White Blood Count 5.2 K/mcL (4.3-11.1)
[2022-01-29 02:56] LABS: BUN/Creatinine Ratio 31 (6-26); Blood Urea Nitrogen 11 mg/dL (8-23); Calcium 7.1 mg/dL (8.6-10.3); Carbon Dioxide 30 mEq/L (23-29); Chloride 99 mEq/L (98-107); Glucose 119 mg/dL (70-105); Magnesium 1.7 mg/dL (1.6-2.6); Osmolality,Calculated 281 (280-300); Potassium 3.6 mEq/L (3.5-5.1); Sodium 135 mEq/L (136-145); eGFR For African Americans > 60 (> 60); eGFR For Non-African Americans > 60 (> 60)
[2022-01-29] MEDS: Ipratropium/Albuterol Neb 3 ML IH SCH ×4 (03:22→20:34)
[2022-01-29] MEDS: Acetylcysteine 10% 2 ML INHSOL IH SCH ×4 (03:23→20:34)
[2022-01-29] MEDS: Cefepime HCl 2,000 MG in 0.9 % Sodium Chloride 10 ML IVP SCH ×2 (06:02→16:24)
[2022-01-29] MEDS: Budesonide/Formoterol 160/4.5 1 PUFF INH IH SCH ×2 (10:02→21:03)
[2022-01-29] MEDS: predniSONE 20 MG TABLET GTUBE SCH (10:16)
[2022-01-29] MEDS: Finasteride 5 MG TABLET PO SCH (10:16)
[2022-01-29] MEDS: Pregabalin 75 MG CAPSULE GTUBE SCH ×2 (10:16→19:38)
[2022-01-30] MEDS: Acetylcysteine 10% 2 ML INHSOL IH SCH ×4 (03:55→22:59)
[2022-01-30] MEDS: Ipratropium/Albuterol Neb 3 ML IH SCH ×4 (03:55→22:59)
[2022-01-30 04:33] LABS: Eosinophils % 0.5 %; Hematocrit 29.4 % (37.5-50.1); Hemoglobin 10.3 g/dL (12.9-16.9); Immature Granulocytes % 1.6 % (0-4); Lymphocytes # 0.4 K/mcL (0.6-4.6); Lymphocytes % 6.9 %; Mean Corpuscular Hemoglobin 36.3 pg (28.0-33.3); Mean Corpuscular Volume 103.5 fL (83.0-100.0); Mean Platelet Volume 10.4 fL (9.4-12.4); Monocytes # 0.3 K/mcL (0.0-1.3); Monocytes % 5.9 %; Neutrophils # 4.8 K/mcL (1.6-8.9); Platelet Count 192 K/mcL (140-400); Red Blood Count 2.84 M/mcL (4.19-5.50); Red Cell Distribution Width 12.4 % (11.5-14.5); Segmented Neutrophils % 85.1 %; White Blood Count 5.6 K/mcL (4.3-11.1)
[2022-01-30 04:52] LABS: BUN/Creatinine Ratio 21 (6-26); Blood Urea Nitrogen 8 mg/dL (8-23); Calcium 6.8 mg/dL (8.6-10.3); Carbon Dioxide 29 mEq/L (23-29); Chloride 104 mEq/L (98-107); Glucose 102 mg/dL (70-105); Magnesium 1.6 mg/dL (1.6-2.6); Osmolality,Calculated 281 (280-300); Potassium 3.4 mEq/L (3.5-5.1); Sodium 136 mEq/L (136-145); eGFR For African Americans > 60 (> 60); eGFR For Non-African Americans > 60 (> 60)
[2022-01-30] MEDS: *HR* OxyCODONE Immed Rel 5 MG TABLET GTUBE PRN ×3 (05:24→20:57)
[2022-01-30] MEDS: Cefepime HCl 2,000 MG in 0.9 % Sodium Chloride 10 ML IVP SCH ×2 (05:24→17:20)
[2022-01-30] MEDS ORDERED: Potassium Chloride Elixir 20 MEQ/15 ML UDC GTUBE ONE (07:51)
[2022-01-30] MEDS: MetroNIDAZOLE 500 MG/100 ML 500 MG/100 ML BAG IVPB SCH ×2 (09:56→16:00)
[2022-01-30] MEDS: predniSONE 10 MG TABLET GTUBE SCH (09:57)
[2022-01-30] MEDS: Pregabalin 75 MG CAPSULE GTUBE SCH ×2 (09:57→20:57)
[2022-01-30] MEDS: Finasteride 5 MG TABLET PO SCH (09:57)
[2022-01-30] MEDS: Budesonide/Formoterol 160/4.5 1 PUFF INH IH SCH ×2 (10:00→22:59)
[2022-01-30] MEDS: Albumin 25% 25gram/100mL 25 GM/100 ML IV.SOLN IVPB SCH ×2 (11:09→17:20)
[2022-01-31 00:37] VITALS: PULSE 72
[2022-01-31] MEDS: MetroNIDAZOLE 500 MG/100 ML 500 MG/100 ML BAG IVPB SCH ×2 (01:17→09:09)
[2022-01-31] MEDS: Albumin 25% 25gram/100mL 25 GM/100 ML IV.SOLN IVPB SCH (02:15)
[2022-01-31] MEDS: Ipratropium/Albuterol Neb 3 ML IH SCH ×2 (03:44→10:29)
[2022-01-31] MEDS: Acetylcysteine 10% 2 ML INHSOL IH SCH ×2 (03:44→10:29)
[2022-01-31 05:05] VITALS: BP 100/64; TEMP 97.7; O2SAT 95
[2022-01-31] MEDS: Cefepime HCl 2,000 MG in 0.9 % Sodium Chloride 10 ML IVP SCH (05:36)
[2022-01-31] MEDS: *HR* OxyCODONE Immed Rel 5 MG TABLET GTUBE PRN (05:37)
[2022-01-31 06:33] LABS: BUN/Creatinine Ratio 32 (6-26); Blood Urea Nitrogen 12 mg/dL (8-23); Calcium 8.4 mg/dL (8.6-10.3); Carbon Dioxide 29 mEq/L (23-29); Chloride 101 mEq/L (98-107); Glucose 124 mg/dL (70-105); Magnesium 1.9 mg/dL (1.6-2.6); Osmolality,Calculated 285 (280-300); Potassium 3.4 mEq/L (3.5-5.1); Sodium 137 mEq/L (136-145); eGFR For African Americans > 60 (> 60); eGFR For Non-African Americans > 60 (> 60)
[2022-01-31 07:08] LABS: Eosinophils # 0.1 K/mcL (0.0-0.6); Eosinophils % 1.1 %; Hematocrit 27.4 % (37.5-50.1); Hemoglobin 9.3 g/dL (12.9-16.9); Immature Granulocytes % 0.8 % (0-4); Lymphocytes # 0.4 K/mcL (0.6-4.6); Lymphocytes % 5.6 %; Mean Corpuscular HGB Conc 33.9 g/dL (31.6-35.5); Mean Corpuscular Hemoglobin 35.4 pg (28.0-33.3); Mean Corpuscular Volume 104.2 fL (83.0-100.0); Mean Platelet Volume 10.4 fL (9.4-12.4); Monocytes # 0.5 K/mcL (0.0-1.3); Monocytes % 6.3 %; Neutrophils # 6.1 K/mcL (1.6-8.9); Platelet Count 178 K/mcL (140-400); Red Blood Count 2.63 M/mcL (4.19-5.50); Red Cell Distribution Width 12.6 % (11.5-14.5); Segmented Neutrophils % 86.2 %; White Blood Count 7.1 K/mcL (4.3-11.1)
[2022-01-31] MEDS ORDERED: Potassium Chloride Elixir 20 MEQ/15 ML UDC GTUBE ONE (07:44)
[2022-01-31] MEDS: Pregabalin 75 MG CAPSULE GTUBE SCH (09:09)
[2022-01-31] MEDS: Finasteride 5 MG TABLET PO SCH (09:09)
[2022-01-31] MEDS: predniSONE 10 MG TABLET GTUBE SCH (09:09)
[2022-01-31] MEDS: Budesonide/Formoterol 160/4.5 1 PUFF INH IH SCH (10:28)
== END 2022-01-31 12:27 | disposition home or self-care (01) | DRG 720 ==
LOC: 2NNU 13:54 → EMEROOARM 13:54 → SUATTDRO 17:29 → 2NNU 17:49 → 3ANU 01-25 14:57
PROVIDERS: ADMIT Hospitalist; ATTEND Pharmacist

== ENCOUNTER 2022-03-14 11:08 | Inpatient (IN) ==
[2022-03-14] MEDS ORDERED: 0.9 % Sodium Chloride 1,000 ML IVC ONE (11:26)
[2022-03-14 12:26] LABS: Basophils % 0.4 %; Eosinophils % 0.4 %; Hematocrit 52.7 % (37.5-50.1); Hemoglobin 16.6 g/dL (12.9-16.9); Immature Granulocytes % 0.8 % (0-4); Lymphocytes % 9.9 %; Mean Corpuscular HGB Conc 31.5 g/dL (31.6-35.5); Mean Corpuscular Volume 104.8 fL (83.0-100.0); Mean Platelet Volume 12.6 fL (9.4-12.4); Monocytes # 0.4 K/mcL (0.0-1.3); Monocytes % 3.6 %; Neutrophils # 8.6 K/mcL (1.6-8.9); Platelet Count 273 K/mcL (140-400); Red Blood Count 5.03 M/mcL (4.19-5.50); Red Cell Distribution Width 14.3 % (11.5-14.5); Segmented Neutrophils % 84.9 %; White Blood Count 10.1 K/mcL (4.3-11.1)
[2022-03-14 13:17] LABS: Troponin I 0.05 ng/mL (< 0.04)
[2022-03-14 13:29] LABS: Calcium 11.3 mg/dL (8.6-10.3); Potassium 3.3 mEq/L (3.5-5.1)
[2022-03-14] MEDS ORDERED: Naloxone 0.4 MG/ML INJ IVP PRN (14:33)
[2022-03-14 18:31] LABS: BUN/Creatinine Ratio 58 (6-26); Blood Urea Nitrogen 77 mg/dL (8-23); Calcium 9.7 mg/dL (8.6-10.3); Carbon Dioxide 33 mEq/L (23-29); Chloride 114 mEq/L (98-107); Glucose 98 mg/dL (70-105); Osmolality,Calculated 355 (280-300); Potassium 3.3 mEq/L (3.5-5.1); Sodium 161 mEq/L (136-145); eGFR For African Americans > 60 (> 60); eGFR For Non-African Americans 55 (> 60)
[2022-03-14] MEDS ORDERED: D5% in Water 1,000 ML IVC SCH (18:45)
[2022-03-14] MEDS: Budesonide/Formoterol 160/4.5 1 PUFF INH IH SCH (19:59)
[2022-03-14] MEDS: *HR* Heparin 5,000 UNIT/ML VIAL SQ SCH (21:28)
[2022-03-14 23:13] LABS: Bilirubin,Urine Negative (Negative); Blood,Urine Negative (Negative); Clarity,Urine Clear (Clear); Color,Urine Yellow (Yellow); Glucose,Urine (UA) Normal (Normal); Hyaline Casts,Urine Many per lpf (None Seen); Ketones,Urine 10 mg/dL (Negative); Leukocyte Esterase,Urine Trace (Negative); Mucus,Urine Few per lpf (None-Few); Nitrite,Urine Negative (Negative); PH,Urine 5.5 pH Units (5.0-8.0); Protein,Urine 30 mg/dL (Neg-Trace); RBC,Urine 15-30 per hpf (0-3); Specific Gravity,Urine 1.025 (1.010-1.025); Squamous Epithelial Cell,Urine Few per hpf (None-Few); Urobilinogen,Urine Normal (Normal); WBC,Urine 15-30 per hpf (0-3)
[2022-03-15] MEDS ORDERED: D5% in Water 1,000 ML IVC SCH (04:33)
[2022-03-15] MEDS: *HR* Heparin 5,000 UNIT/ML VIAL SQ SCH ×2 (04:58→17:20)
[2022-03-15] MEDS: Budesonide/Formoterol 160/4.5 1 PUFF INH IH SCH ×2 (07:59→20:36)
[2022-03-15 08:56] LABS: Basophils % 0.2 %; Eosinophils # 0.1 K/mcL (0.0-0.6); Eosinophils % 0.7 %; Hematocrit 42.1 % (37.5-50.1); Immature Granulocytes % 0.3 % (0-4); Lymphocytes # 0.8 K/mcL (0.6-4.6); Lymphocytes % 7.5 %; Mean Corpuscular HGB Conc 31.8 g/dL (31.6-35.5); Mean Corpuscular Hemoglobin 33.4 pg (28.0-33.3); Mean Platelet Volume 12.3 fL (9.4-12.4); Monocytes # 0.5 K/mcL (0.0-1.3); Monocytes % 4.7 %; Neutrophils # 8.9 K/mcL (1.6-8.9); Platelet Count 179 K/mcL (140-400); Red Blood Count 4.01 M/mcL (4.19-5.50); Red Cell Distribution Width 14.3 % (11.5-14.5); Segmented Neutrophils % 86.6 %; White Blood Count 10.3 K/mcL (4.3-11.1)
[2022-03-15 09:04] LABS: Hemoglobin 13.4 g/dL (12.9-16.9)
[2022-03-15 09:17] LABS: BUN/Creatinine Ratio 63 (6-26); Blood Urea Nitrogen 60 mg/dL (8-23); Calcium 9.3 mg/dL (8.6-10.3); Carbon Dioxide 31 mEq/L (23-29); Chloride 112 mEq/L (98-107); Glucose 155 mg/dL (70-105); Magnesium 2.5 mg/dL (1.6-2.6); Osmolality,Calculated 332 (280-300); Phosphorous 2.3 mg/dL (2.7-4.5); Potassium 3.6 mEq/L (3.5-5.1); Sodium 151 mEq/L (136-145); eGFR For African Americans > 60 (> 60); eGFR For Non-African Americans > 60 (> 60)
[2022-03-15] MEDS ORDERED: Potassium Phosphate 44 MEQ in 0.9 % Sodium Chloride 250 ML IVPB ONE (11:00)
[2022-03-15] MEDS: D5% in 0.45% NACL 1,000 ML IVC SCH (11:04)
[2022-03-16] MEDS: D5% in 0.45% NACL 1,000 ML IVC SCH ×2 (00:16→12:50)
[2022-03-16] MEDS: *HR* Heparin 5,000 UNIT/ML VIAL SQ SCH ×2 (04:54→18:25)
[2022-03-16] MEDS ORDERED: 0.9 % Sodium Chloride 500 ML IVC ONE (07:48)
[2022-03-16] MEDS: Budesonide/Formoterol 160/4.5 1 PUFF INH IH SCH ×2 (10:10→20:13)
[2022-03-16 13:07] LABS: BUN/Creatinine Ratio 41 (6-26); Blood Urea Nitrogen 31 mg/dL (8-23); Carbon Dioxide 27 mEq/L (23-29); Chloride 112 mEq/L (98-107); Glucose 106 mg/dL (70-105); Osmolality,Calculated 311 (280-300); Potassium 4.3 mEq/L (3.5-5.1); Sodium 147 mEq/L (136-145); eGFR For African Americans > 60 (> 60); eGFR For Non-African Americans > 60 (> 60)
[2022-03-16] MEDS ORDERED: OLANZapine 5 MG TAB.RAPDIS PO SCH (15:15)
[2022-03-16] MEDS: Pregabalin 75 MG CAPSULE GTUBE SCH (20:43)
[2022-03-17] MEDS: D5% in 0.45% NACL 1,000 ML IVC SCH (05:20)
[2022-03-17] MEDS: *HR* Heparin 5,000 UNIT/ML VIAL SQ SCH ×2 (05:20→16:30)
[2022-03-17 06:45] LABS: BUN/Creatinine Ratio 29 (6-26); Blood Urea Nitrogen 17 mg/dL (8-23); Calcium 7.9 mg/dL (8.6-10.3); Carbon Dioxide 25 mEq/L (23-29); Chloride 110 mEq/L (98-107); Glucose 105 mg/dL (70-105); Magnesium 1.8 mg/dL (1.6-2.6); Osmolality,Calculated 298 (280-300); Phosphorous 1.6 mg/dL (2.7-4.5); Potassium 3.1 mEq/L (3.5-5.1); Sodium 143 mEq/L (136-145); eGFR For African Americans > 60 (> 60); eGFR For Non-African Americans > 60 (> 60)
[2022-03-17 07:33] LABS: Basophils % 0.4 %; Eosinophils # 0.1 K/mcL (0.0-0.6); Eosinophils % 1.2 %; Hematocrit 38.3 % (37.5-50.1); Hemoglobin 11.8 g/dL (12.9-16.9); Immature Granulocytes % 1.8 % (0-4); Lymphocytes # 0.6 K/mcL (0.6-4.6); Lymphocytes % 10.5 %; Mean Corpuscular HGB Conc 30.8 g/dL (31.6-35.5); Mean Corpuscular Hemoglobin 33.1 pg (28.0-33.3); Mean Corpuscular Volume 107.6 fL (83.0-100.0); Mean Platelet Volume 12.7 fL (9.4-12.4); Monocytes # 0.3 K/mcL (0.0-1.3); Monocytes % 5.5 %; Neutrophils # 4.5 K/mcL (1.6-8.9); Platelet Count 115 K/mcL (140-400); Red Blood Count 3.56 M/mcL (4.19-5.50); Red Cell Distribution Width 14.3 % (11.5-14.5); Segmented Neutrophils % 80.6 %; White Blood Count 5.6 K/mcL (4.3-11.1)
[2022-03-17] MEDS: Budesonide/Formoterol 160/4.5 1 PUFF INH IH SCH ×2 (07:52→20:54)
[2022-03-17] MEDS ORDERED: UBIDECARENONE 100 MG GTUBE SCH (09:00)
[2022-03-17] MEDS: Pregabalin 75 MG CAPSULE GTUBE SCH ×2 (09:18→21:42)
[2022-03-17] MEDS: Ondansetron 4 MG/2 ML VIAL IVP PRN (21:42)
[2022-03-17] MEDS: *HR* OxyCODONE Immed Rel 5 MG TABLET GTUBE PRN (21:43)
[2022-03-18] MEDS: *HR* Heparin 5,000 UNIT/ML VIAL SQ SCH ×2 (06:26→16:48)
[2022-03-18 07:29] LABS: BUN/Creatinine Ratio 21 (6-26); Blood Urea Nitrogen 13 mg/dL (8-23); Calcium 7.6 mg/dL (8.6-10.3); Carbon Dioxide 29 mEq/L (23-29); Chloride 107 mEq/L (98-107); Glucose 117 mg/dL (70-105); Magnesium 1.8 mg/dL (1.6-2.6); Osmolality,Calculated 291 (280-300); Potassium 3.5 mEq/L (3.5-5.1); Sodium 140 mEq/L (136-145); eGFR For African Americans > 60 (> 60); eGFR For Non-African Americans > 60 (> 60)
[2022-03-18] MEDS: Budesonide/Formoterol 160/4.5 1 PUFF INH IH SCH ×2 (07:56→20:10)
[2022-03-18] MEDS: Aspirin 81 MG TAB.CHEW GTUBE SCH (08:56)
[2022-03-18] MEDS: Pregabalin 75 MG CAPSULE GTUBE SCH ×2 (08:56→20:43)
[2022-03-18] MEDS: *HR* OxyCODONE Immed Rel 5 MG TABLET GTUBE PRN (20:43)
[2022-03-19] MEDS: *HR* Heparin 5,000 UNIT/ML VIAL SQ SCH ×2 (05:59→16:55)
[2022-03-19 06:49] LABS: BUN/Creatinine Ratio 25 (6-26); Blood Urea Nitrogen 13 mg/dL (8-23); Calcium 7.5 mg/dL (8.6-10.3); Carbon Dioxide 29 mEq/L (23-29); Chloride 105 mEq/L (98-107); Glucose 110 mg/dL (70-105); Magnesium 1.7 mg/dL (1.6-2.6); Osmolality,Calculated 289 (280-300); Phosphorous 2.8 mg/dL (2.7-4.5); Potassium 3.5 mEq/L (3.5-5.1); Sodium 139 mEq/L (136-145); eGFR For African Americans > 60 (> 60); eGFR For Non-African Americans > 60 (> 60)
[2022-03-19] MEDS: Budesonide/Formoterol 160/4.5 1 PUFF INH IH SCH ×2 (08:04→20:45)
[2022-03-19] MEDS: Ondansetron 4 MG/2 ML VIAL IVP PRN (09:17)
[2022-03-19] MEDS: Aspirin 81 MG TAB.CHEW GTUBE SCH (09:18)
[2022-03-19] MEDS: Pregabalin 75 MG CAPSULE GTUBE SCH ×2 (09:18→20:52)
[2022-03-19] MEDS ORDERED: D5% in Water 1,000 ML IVC PRN (11:14)
[2022-03-19] MEDS ORDERED: *HR* Dextrose 50 % in Water (Syg) 50 ML SYRINGE IVP PRN (11:14)
[2022-03-19] MEDS ORDERED: Dextrose Gel 15 GM/37.5 ML TUBE PO PRN ×2 (11:14)
[2022-03-19] MEDS: Insulin LISPRO 300 UNITS/3 ML VIAL SUBQ SCH ×2 (12:31→16:48)
[2022-03-19] MEDS: *HR* OxyCODONE Immed Rel 5 MG TABLET GTUBE PRN (12:44)
[2022-03-20] MEDS: Insulin LISPRO 300 UNITS/3 ML VIAL SUBQ SCH ×3 (00:27→12:15)
[2022-03-20] MEDS: *HR* Heparin 5,000 UNIT/ML VIAL SQ SCH (05:54)
[2022-03-20] MEDS: Pregabalin 75 MG CAPSULE GTUBE SCH (08:30)
[2022-03-20] MEDS: Aspirin 81 MG TAB.CHEW GTUBE SCH (08:31)
[2022-03-20] MEDS: Budesonide/Formoterol 160/4.5 1 PUFF INH IH SCH (11:33)
[2022-03-20 15:42] VITALS: BP 95/53; PULSE 68; TEMP 97.8; O2SAT 95
== END 2022-03-20 16:37 | disposition home health service (06) | DRG 252 ==
LOC: EMEROOARM 11:08 → 2ANU 11:08 → SUATTDRO 14:21 → 2ANU 15:05
PROVIDERS: ADMIT Student in an Organized Health Care Education/Training Program; ATTEND Internal Medicine